=== PATIENT | female | born 1930 | race Asian ===

== ENCOUNTER 2016-11-08 12:38 | Outpatient (CLI) | payer MEDICARE, OTHER | END 2016-11-08 12:39 | disposition home or self-care (01) | DX: I35.8 Other nonrheumatic aortic valve disorders (principal); I51.7 Cardiomegaly ==

== ENCOUNTER 2017-01-27 15:54 | Outpatient (CLI) | payer MEDICARE, OTHER | END 2017-01-27 15:55 | disposition home or self-care (01) | DX: I10 Essential (primary) hypertension (principal); E78.5 Hyperlipidemia, unspecified ==

== ENCOUNTER 2017-03-03 14:55 | Outpatient (CLI) | payer MEDICARE, OTHER | END 2017-03-03 14:56 | disposition home or self-care (01) | DX: R52 Pain, unspecified (principal); M81.0 Age-related osteoporosis without current pathological fracture ==

== ENCOUNTER 2017-04-06 14:07 | Outpatient (CLI) | payer MEDICARE, OTHER ==
[2017-04-06 14:43] LABS: CALCIUM 9.1 mg/dL (8.5-10.3); POTASSIUM 4.2 mmol/L (3.5-5.0)
[2017-04-06] MEDS ORDERED: IOPAMIDOL-300 100 ML VIAL IVP ONE (15:10)
--- NOTE | 2017-04-07 12:21 | CT Report ---
CT CHEST WITH CONTRAST: 04/06/2017 CLINICAL INDICATION: Pulmonary nodule. TECHNIQUE: Axial CT images of the chest were obtained with 100 mL Isovue-300 intravenously. In accordance with CT protocol optimization, one or more of the following dose reduction techniques w ere utilized for this exam: automated exposure control, adjustment of mA and/or KV based on patient size, or use of iterative reconstructive technique. COMPARISON: 10/03/2014, 03/23/2014 FINDINGS: The heart and great vessels demonstrate atherosclerotic calcifications. No hilar or media stinal lymphadenopathy is present. There has been interval increase in the size of the previously no luz pulmonary nodules, with the right lower lobe nodule now measuring 3.2 x 1.5 cm, and the right mid dle lobe nodule now measuring 2.2 x 1.7 cm. Given the interval increase, biopsy would typically be r ecommended. There is trace right pleural effusion present. No pneumothorax. The left lung remains clear. Limited evaluation of upper abdominal structures demonstrates normal adrenal glands. Osseous structures demonstrate degenerative changes. IMPRESSION: INTERVAL INCREASE IN SIZE OF RIGHT MIDDLE AND LOWER LOBE PULMONARY NODULES. CONSIDER BI OPSY. JOB #: [id number] EXT JOB #:[id number]
== END 2017-04-06 14:08 | disposition home or self-care (01) ==
LOC: LAB 14:07
PROVIDERS: ATTEND Physician Assistant Medical
DX: R91.8 Other nonspecific abnormal finding of lung field (principal)
CPT/HCPCS: 36415; 71260; 80048; Q9967

== ENCOUNTER 2017-06-12 10:04 | Emergency (ER) | payer MEDICARE, OTHER ==
[2017-06-12] MEDS ORDERED: MORPHINE 2 MG/ML SYRINGE IVP STA (11:24)
[2017-06-12] MEDS ORDERED: ACETAMINOPHEN 325 MG TABLET PO STA (11:24)
[2017-06-12] MEDS ORDERED: LIDOCAINE VISCOUS 2% 15 ML UDC MM STA (11:25)
[2017-06-12] MEDS ORDERED: MAG HYDROX/AL HYDROX/SIMETH 30 ML UDC PO STA (11:25)
[2017-06-12] MEDS ORDERED: ACETAMINOPHEN 325 MG TABLET PO ONE (11:47)
[2017-06-12] MEDS ORDERED: MORPHINE 2 MG/ML SYRINGE ONE (11:47)
[2017-06-12] MEDS ORDERED: LIDOCAINE VISCOUS 2% 15 ML UDC MM ONE (11:48)
[2017-06-12] MEDS ORDERED: MAG HYDROX/AL HYDROX/SIMETH 30 ML UDC ONE (11:48)
[2017-06-12] MEDS ORDERED: SODIUM CHLORIDE FLUSH 0.9% 10 ML SYRINGE IVP ONE ×2 (11:52→13:55)
[2017-06-12 12:41] LABS: BASOPHILS % (AUTO) 0.2 %; EOSINOPHILS # (AUTO) 0.1 10^3/uL (0.0-0.7); EOSINOPHILS % (AUTO) 1.7 %; HCT - HEMATOCRIT 33.7 % (37.0-47.0); HGB - HEMOGLOBIN 11.5 g/dL (12.0-16.0); LYMPHOCYTES # (AUTO) 0.6 10^3/uL (1.5-3.5); LYMPHOCYTES % (AUTO) 14.6 %; MEAN CORPUSCULAR HEMOGLOBIN 32.2 pg (27.0-31.0); MEAN CORPUSCULAR VOLUME 94.7 fL (81.0-99.0); MONOCYTES # (AUTO) 0.3 10^3/uL (0.0-1.0); MONOCYTES % (AUTO) 6.5 %; NEUTROPHILS # (AUTO) 3.1 10^3/uL (1.5-6.6); RED BLOOD COUNT 3.55 10^6/uL (4.20-5.40)
[2017-06-12 12:50] LABS: H. PYLORI IGG ANTIBODY Negative (Negative); HPYLORI NEG QC Negative (Negative); HPYLORI POS QC POSITIVE (Positive)
[2017-06-12 12:52] LABS: ALBUMIN/GLOBULIN RATIO 1.1 (1.0-2.2); BILIRUBIN,TOTAL 0.8 mg/dL (0.2-1.0); CREATININE 0.9 mg/dL (0.4-1.0); POTASSIUM 4.1 mmol/L (3.5-5.0); TOTAL PROTEIN 6.8 g/dL (6.7-8.2)
--- NOTE | 2017-06-12 13:16 | XRAY Preliminary Report ---
Exam: XR Chest 2 View PA/LAT IMPRESSION: Small right pleural effusion with adjacent airspace disease/atelectasis. [facility] SITE ID: [id number]
--- NOTE | 2017-06-12 13:17 | ED Physician Documentation ---
PD HPI DYSPNEA - Stated complaint Stated Complaint: SOA/BACK PX - Chief complaint Chief Complaint: Resp - History obtained from History obtained from: Patient - History of Present Illness Timing - onset: How many days ago (3-5) Timing - onset during: Light activity Timing - duration: Days (3-5) Timing - details: Gradual onset, Waxing and waning Inciting event(s): URI (some cough with white sputum). No: Immobilization/ travel Improved by: Rest. No: Sitting up Worsened by: Exertion, Coughing. No: Laying flat Associated symptoms: Cough, Chest pain / discomfort (right breast area). No: Hemoptysis, Wheezing, Bilateral edema Similar symptoms before: Has not had sx before Recently seen: Clinic (had had abnormal CXR in recent and had CT scan showing some right lung nodules. Seen by Dr. Solorio, cardiothoracic surgery in [place], who ordered PET scan in [place] (easier for patient to get to) done 2 days ago. Patient has had worse dyspnea, cough and some pains in chest around breast level.) Review of Systems Constitutional: reports: Myalgias. denies: Fever, Chills Nose: reports: Rhinorrhea / runny nose, Congestion Throat: denies: Sore throat Cardiac: reports: Chest pain / pressure. denies: Palpitations, Pedal edema, Calf pain Respiratory: reports: Dyspnea, Cough. denies: Hemoptysis GI: denies: Nausea Neurologic: reports: Generalized weakness. denies: Focal weakness, Numbness, Near syncope, Altered mental status, Headache, Head injury Endocrine: denies: Polydypsia, Weight loss, Weight gain Immunocompromised: denies: Immunocompromised PD PAST MEDICAL HISTORY - Past Medical History Cardiovascular: Hypertension Respiratory: None Neuro: None Endocrine/Autoimmune: None GI: Ulcerative colitis : Frequency HEENT: Chronic vision loss, Chronic hearing loss Psych: Anxiety Musculoskeletal: Osteoarthritis, Chronic back pain Derm: None - Past Surgical History Past Surgical History: Yes HEENT: Cataracts Derm: Other - Present Medications Home Medications: Ambulatory Orders Medication Instructions Recorded Confirmed Atenolol [Tenormin] 25 mg PO DAILY 07/10/13 04/28/14 Albuterol Sulfate [Proair Hfa 2 puffs IH QID #1 hfa.aer.ad 06/12/17 Inhaler] Azithromycin [Zithromax] 250 mg PO DAILY #4 tablet 06/12/17 Dexamethasone [Decadron] 4 mg PO DAILY #5 tablet 06/12/17 guaiFENesin/CODEINE [Robitussin AC] 10 ml PO Q6H PRN #240 ml 06/12/17 - Allergies Allergies/Adverse Reactions: Allergies Allergy/AdvReac Type Severity Reaction Status Date / Time neomycin [Neomycin] Allergy Unknown unknown Verified 06/12/17 10:33 tetracaine Allergy Unknown unknown Verified 06/12/17 10:33 - Social History Does the pt smoke?: No Smoking Status: Never smoker Does the pt drink ETOH?: No Does the pt have substance abuse?: No - Immunizations Immunizations are current?: No PD ED PE NORMAL - Vitals Vital signs reviewed: Yes - General General: Alert and oriented X 3, Well developed/nourished - HEENT HEENT: Ears normal, Moist mucous membranes, Pharynx benign - Neck Neck: Supple, no meningeal sign, No adenopathy - Cardiac Cardiac: RRR, No murmur - Respiratory Respiratory: No: Clear bilaterally (scattered mild wheezes, no coarse sounds. ) - Abdomen Abdomen: Soft, Non tender - Back Back: No CVA TTP - Derm Derm: Normal color, Warm and dry, No rash - Extremities Extremities: Normal ROM s pain, No edema, No calf tenderness / cord - Neuro Neuro: Alert and oriented X 3, No motor deficit, Normal speech Results - Vitals Vitals: Vital Signs - 24 hr 06/12/17 06/12/17 06/12/17 10:10 11:35 12:13 Temperature 37.2 C Heart Rate 101 H 66 63 Respiratory 14 27 H 20 Rate Blood Pressure 169/64 H 161/55 H 139/55 H O2 Saturation 100 98 99 06/12/17 06/12/17 14:00 15:34 Temperature Heart Rate 58 L 77 Respiratory 14 16 Rate Blood Pressure 155/66 H O2 Saturation 99 Oxygen O2 Source Room air - EKG (time done) 10:21 Rate: Rate (enter#) (72) Rhythm: NSR Garrison: Normal Intervals: Normal IN Ischemia: Normal ST segments. No: ST elevation c/w ischemia, ST depression - Labs Labs: Laboratory Tests 06/12/17 06/12/17 06/12/17 12:30 12:30 12:30 WBC 4.0 L RBC 3.55 L Hgb 11.5 L Hct 33.7 L MCV 94.7 MCH 32.2 H MCHC 34.0 RDW 13.0 Plt Count 167 MPV 7.0 L Neut # 3.1 Lymph # 0.6 L Haakon # 0.3 Eos # 0.1 Baso # 0.0 Absolute Nucleated RBC 0.00 Nucleated RBCs 0.0 Sodium 131 L Potassium 4.1 Chloride 95 L Carbon Dioxide 28 Anion Gap 8.0 BUN 17 Creatinine 0.9 Estimated GFR (MDRD) 59 L Glucose 114 H Calcium 9.0 Total Bilirubin 0.8 AST 26 ALT 20 Alkaline Phosphatase 38 L Troponin I < 0.04 Total Protein 6.8 Albumin 3.5 Globulin 3.3 Albumin/Globulin Ratio 1.1 Lipase 45 H. pylori IgG Antibody 06/12/17 12:30 WBC RBC Hgb Hct MCV MCH MCHC RDW Plt Count MPV Neut # Lymph # Haakon # Eos # Baso # Absolute Nucleated RBC Nucleated RBCs Sodium Potassium Chloride Carbon Dioxide Anion Gap BUN Creatinine Estimated GFR (MDRD) Glucose Calcium Total Bilirubin AST ALT Alkaline Phosphatase Troponin I Total Protein Albumin Globulin Albumin/Globulin Ratio Lipase H. pylori IgG Antibody Negative - Rads (name of study) chest Radiology: Prelim report reviewed, EMP read contemporaneously (pneumonic process right lower with right pleural effusion. ) PD MEDICAL DECISION MAKING - ED course Complexity details: reviewed old records (got CT/PET scan results from [place] , showing 2 lung nodules right lung wiht some adenopathy. Small effusion on right. Concerning for slow growing tumor such as AdenoCA. ), considered differential (she does have infiltrative changes right lower lung and some infiltrate compared with smutter of recent chest CT. ), d/w patient Departure - Departure Disposition: 01 Home, Self Care Clinical Impression: Pneumonia Qualifiers: Pneumonia type: due to unspecified organism Laterality: right Lung location: lower lobe of lung Qualified Code(s): J18.1 - Lobar pneumonia, unspecified organism Condition: Stable Record reviewed to determine appropriate education?: Yes Instructions: ED Pneumonia Adult Follow-Up: Rica Talbert PA-C [Primary Care Provider] - Prescriptions: Dexamethasone [Decadron] 4 mg PO DAILY #5 tablet Albuterol Sulfate [Proair Hfa Inhaler] 2 puffs IH QID #1 hfa.aer.ad guaiFENesin/CODEINE [Robitussin AC] 10 ml PO Q6H PRN #240 ml PRN Reason: Cough Azithromycin [Zithromax] 250 mg PO DAILY #4 tablet Comments: Your x-ray appears like some pneumonia on the right side and I think this accounts for your trouble breathing and the pain and cough. Use albuterol inhaler 2 puffs 4 times a day for the next week. Azithromycin daily for 4 more days which is an antibiotic for the infection. Cough medicine if needed. Decadron daily for 4 more days for inflammation. Recheck with her primary care in the next few days, call for an appointment. Follow-up with Dr. Solorio, thoracic surgeon in [place], at her office's direction. Discharge Date/Time: 06/12/17 15:34
--- NOTE | 2017-06-12 13:18 | XRAY Report ---
EXAM: CHEST RADIOGRAPHY EXAM DATE: 06/12/2017 11:58 AM. CLINICAL HISTORY: Chest pain. COMPARISON: 04/06/2017. TECHNIQUE: 2 views. FINDINGS: Lungs/Pleura: The right costophrenic angle is blunted. There is adjacent opacity. No pneumothorax. Mi nimal left basilar atelectasis. Mediastinum: Heart size within normal limits. Unfolded aorta. Atherosclerotic calcification in the ao rtic arch. Other: None. IMPRESSION: Small right pleural effusion with adjacent airspace disease/atelectasis. [facility] Referring Provider Line: [phone] SITE ID: [id number]
[2017-06-12] MEDS ORDERED: DEXAMETHASONE 10 MG/ML VIAL IVP STA (13:42)
[2017-06-12] MEDS ORDERED: cefTRIAXone 1 GM in SODIUM CHLORIDE 0.9% MINIBAG 100 ML IV STA (13:42)
[2017-06-12] MEDS ORDERED: AZITHROMYCIN 250 MG TABLET PO STA (13:42)
[2017-06-12] MEDS ORDERED: ALBUTEROL NEB 2.5 MG/3 ML INH STA (13:42)
[2017-06-12] MEDS ORDERED: AZITHROMYCIN 250 MG TABLET PO ONE (13:54)
[2017-06-12] MEDS ORDERED: DEXAMETHASONE 10 MG/ML VIAL ONE (13:55)
[2017-06-12] MEDS ORDERED: cefTRIAXone 1 GM VIAL ONE (13:55)
[2017-06-12] MEDS ORDERED: ALBUTEROL NEB 2.5 MG/3 ML INH ONE (13:56)
[2017-06-12] MEDS ORDERED: ONDANSETRON 4 MG/2 ML VIAL IM STA (14:56)
[2017-06-12] MEDS ORDERED: ONDANSETRON 4 MG/2 ML VIAL ONE (15:04)
[2017-06-12 15:36] VITALS: BP 155/66
== END 2017-06-12 15:34 | disposition home or self-care (01) ==
LOC: ED 10:04
DX: J18.9 Pneumonia, unspecified organism (principal); I10 Essential (primary) hypertension
CPT/HCPCS: 36415; 71020; 80053; 83690; 84484; 85025; 87339; 93005; 96365; 96372; 96375; 99284; A9270; J7613

== ENCOUNTER 2017-10-05 12:16 | Outpatient (CLI) | payer MEDICARE, OTHER ==
--- NOTE | 2017-10-05 12:46 | XRAY Report ---
CHEST, TWO VIEWS: 10/05/2017 HISTORY: Lung cancer. COMPARISON: 06/21/2017 FINDINGS: Compared to the prior study, there has been significant worsening with a large right pleur al effusion occupying most of the right hemithorax. The left lung is grossly clear. No left pleural effusion. No pneumothorax on either side. Heart size difficult to assess. Multilevel degenerative change in the spine. IMPRESSION: LARGE RIGHT PLEURAL EFFUSION OCCUPYING MUCH OF THE RIGHT HEMITHORAX, INTERVAL WORSENING SINCE 06/21/2017. JOB #: [id number] EXT JOB #:[id number]
[2017-10-05 13:12] LABS: INR 1.1 (0.8-1.2); PT - PROTHROMBIN TIME 11.9 secs (9.9-12.6)
[2017-10-05 13:20] LABS: PARTIAL THROMBOPLASTIN TIME 29.1 secs (24.9-33.3)
== END 2017-10-05 12:17 | disposition home or self-care (01) ==
LOC: DI 12:16
PROVIDERS: ATTEND Physician Assistant Medical
DX: C34.91 Malignant neoplasm of unspecified part of right bronchus or lung (principal); J90 Pleural effusion, not elsewhere classified
CPT/HCPCS: 36415; 71020; 85610; 85730

== ENCOUNTER 2017-10-05 12:20 | Outpatient (CLI) | payer MEDICARE, OTHER ==
[2017-10-05 15:57] LABS: BF CLARITY BLOODY; BF COLOR BLOODY; CC,BF RBC 88519 /mm^3
[2017-10-05 16:38] LABS: LYMPHOCYTES %,BODY FLUID 96; MACROPHAGES %,BODY FLUID 3 %; NEUTROPHILS %, BF 1 %
[2017-10-05] MEDS ORDERED: BUFFERED LIDOCAINE 10 ML SYRINGE IU ONE (17:15)
--- NOTE | 2017-10-05 20:08 | XRAY Preliminary Report ---
Exam: XR XR 2V INSP/EXP POST THORAC IMPRESSION: Status post right thoracentesis. The large right pleural effusion has decreased to a smal l to moderate amount. New right pneumothorax with a superior width of 3.9 cm on the expiration view. Partially collapsed right lung. See the two follow-up chest x-rays and reports that have already been performed and read. [facility] SITE ID: [id number]
--- NOTE | 2017-10-05 20:11 | XRAY Report ---
EXAM: CHEST RADIOGRAPHY EXAM DATE: 10/05/2017 03:24 PM. CLINICAL HISTORY: F/U THORACENTESIS, RT LUNG ADENOCA. COMPARISON: Chest 10/05/2017. TECHNIQUE: 1 view. FINDINGS: This exam was placed on my list to be read at 7:47 PM on 10/05/2017. Lungs/Pleura: Status post right thoracentesis. The large right pleural effusion has decreased to a sm all to moderate amount. New right pneumothorax with a superior width of 3.9 cm on the expiration view . Partially collapsed right lung. Mediastinum: Normal heart size. IMPRESSION: Status post right thoracentesis. The large right pleural effusion has decreased to a smal l to moderate amount. New right pneumothorax with a superior width of 3.9 cm on the expiration view. Partially collapsed right lung. See the two follow-up chest x-rays and reports that have already been performed and read. [facility] Referring Provider Line: [phone] SITE ID: [id number]
--- NOTE | 2017-10-06 11:37 | Ultrasound Report ---
ULTRASOUND-GUIDED THORACENTESIS: 10/05/2017 HISTORY: Adenocarcinoma right lung. Informed consent is obtained from the patient. With ultrasound guidance, the fluid in the right ches t was marked. With sterile technique, 1% lidocaine is injected into the skin and subcutaneous soft t issues of the right chest. A Gnxz-E-Kaeizwny catheter was then inserted; 50 mL of bloody, dark red f luid was sent to the lab for evaluation; 1200 mL of dark red fluid was aspirated in a vacuum containe r. A post-procedure chest x-ray shows a moderate size right pneumothorax. The patient tolerated the procedure well. IMPRESSION: SUCCESSFUL RIGHT THORACENTESIS WITH THE REMOVAL OF 1250 ML OF DARK RED FLUID COMPLICATED BY A MODERATE SIZE PNEUMOTHORAX. The attending clinician, Rica Talbert PA-C, was notified and the patient was directed to the [facility] room. JOB #: [id number] EXT JOB #:[id number]
[2017-10-06 21:26] VITALS: BP 153/85
[2017-10-07 16:31] LABS: TEST RESULT REPORT
== END 2017-10-05 12:21 | disposition home or self-care (01) ==
LOC: DI 12:20
PROVIDERS: ATTEND Physician Assistant Medical
DX: C34.91 Malignant neoplasm of unspecified part of right bronchus or lung (principal); J90 Pleural effusion, not elsewhere classified; J95.811 Postprocedural pneumothorax
CPT/HCPCS: 32555; 71020; 81599; 87070; 87205; 89051

== ENCOUNTER 2017-10-05 15:45 | Inpatient (IN) | payer MEDICARE, OTHER ==
[2017-10-05] MEDS ORDERED: LIDOCAINE 2% 10 ML MDV SUBQ STA (16:13)
[2017-10-05] MEDS ORDERED: LIDOCAINE 2%-EPI 1:100000 20 ML MDV ONE (16:24)
[2017-10-05] MEDS ORDERED: LIDOCAINE 2% 10 ML MDV ONE ×2 (16:24→16:26)
--- NOTE | 2017-10-05 17:07 | XRAY Preliminary Report ---
Exam: XR CHEST 2 VIEW PA/LAT IMPRESSION: 1. Moderate right hydropneumothorax is unchanged since earlier today at 1514. This may reflect a nonc ompliant right lung. [facility] SITE ID: [id number]
--- NOTE | 2017-10-05 17:10 | XRAY Report ---
EXAM: CHEST RADIOGRAPHY EXAM DATE: 10/05/2017 04:37 PM. CLINICAL HISTORY: Right sided PTX. Recent thoracentesis. COMPARISON: 10/05/2017 at 1514. TECHNIQUE: 2 views. FINDINGS: Lungs/Pleura: There is a moderate sized right-sided hydropneumothorax. The right middle and lower lob e have a rounded shape but do not expand to fill the pleural space. There is apical pleural separatio n of 22 mm area Mediastinum: The heart size is normal. There is mild aortic tortuosity and mild/moderate atherosclero sis. Other: None. IMPRESSION: 1. Moderate right hydropneumothorax is unchanged since earlier today at 1514. This may reflect a nonc ompliant right lung. [facility] Referring Provider Line: [phone] SITE ID: [id number]
[2017-10-05] MEDS ORDERED: ONDANSETRON 4 MG/2 ML VIAL IVP STA (17:38)
[2017-10-05] MEDS ORDERED: MORPHINE 10 MG/ML VIAL IVP STA (17:38)
--- NOTE | 2017-10-05 17:43 | ED Physician Documentation ---
History of Present Illness - Stated complaint Stated Complaint: POST OP COMPLICATION - Chief complaint Chief Complaint: Resp - History obtained from History obtained from: Patient (pt sent over from radiology after she was having a right sided thoracentesis and now has a pneumothorax.) Review of Systems Constitutional: denies: Fever, Chills Cardiac: reports: Chest pain / pressure. denies: Palpitations Respiratory: reports: Dyspnea. denies: Cough, Hemoptysis, Wheezing GI: denies: Abdominal Pain, Nausea, Vomiting : denies: Dysuria, Frequency Skin: denies: Rash, Lesions Musculoskeletal: denies: Back pain Neurologic: denies: Headache, Head injury PD PAST MEDICAL HISTORY - Past Medical History Cardiovascular: Hypertension Respiratory: Shortness of breath Neuro: None Endocrine/Autoimmune: None GI: GERD : Frequency HEENT: Chronic vision loss, Chronic hearing loss Psych: Anxiety Musculoskeletal: Osteoarthritis, Chronic back pain Derm: None - Past Surgical History Past Surgical History: Yes HEENT: Cataracts Derm: Other - Present Medications Home Medications: Ambulatory Orders Medication Instructions Recorded Confirmed Atenolol [Tenormin] 25 mg PO DAILY 07/10/13 10/05/17 Dexamethasone [Decadron] 4 mg PO DAILY #5 tablet 06/12/17 10/05/17 Gabapentin [Gralise] 1 tab PO DAILY 09/28/17 10/05/17 Ubidecarenone [Co Q-10] 1 cap PO DAILY 09/28/17 10/05/17 oxyCODONE [Roxicodone] 5 mg PO Q4-6H PRN 09/28/17 10/05/17 - Allergies Allergies/Adverse Reactions: Allergies Allergy/AdvReac Type Severity Reaction Status Date / Time neomycin [Neomycin] Allergy Unknown unknown Verified 06/12/17 10:33 tetracaine Allergy Unknown unknown Verified 06/12/17 10:33 - Social History Does the pt smoke?: No Smoking Status: Never smoker Does the pt drink ETOH?: No Does the pt have substance abuse?: No - Immunizations Immunizations are current?: No PD ED PE NORMAL - Vitals Vital signs reviewed: Yes - General General: Alert and oriented X 3, Well developed/nourished - Cardiac Cardiac: RRR, No murmur - Respiratory Respiratory: No respiratory distress. No: Clear bilaterally (decreased breath sounds on the right. ) - Abdomen Abdomen: Normal bowel sounds. No: Non tender, Non distended - Back Back: No CVA TTP - Derm Derm: Normal color, No rash - Neuro Neuro: Alert and oriented X 3 - Psych Psych: Normal mood, Normal affect Results - Vitals Vitals: Vital Signs - 24 hr 10/05/17 10/05/17 15:52 16:47 Temperature 36.8 C Heart Rate 76 96 Respiratory 20 18 Rate Blood Pressure 152/84 H 172/82 H O2 Saturation 99 99 Oxygen O2 Source Room air - Rads (name of study) CXR Radiology: Final report received Chest X- ray Radiology: EMP read indepedently Procedures - Chest Tube (location) right other other Chest tube preparation: Consent obtained Chest tube location: Right, Other (2nd intercostal space anterior thoravent) Chest tube anesthesia: Lidocaine Chest tube return: Air Chest tube after care: Other PD MEDICAL DECISION MAKING - ED course Complexity details: d/w patient ED course: pt is stable. decreased right sided breath sounds with PTX on the CXR. thoravent placed w/o problems. Will admit discussed with Dr tsai (general surgery) who will admit. Departure - Departure Disposition: 66 [facility] DC/Xfer Clinical Impression: Pneumothorax on right, Hypertension, Lung cancer Condition: Good
[2017-10-05] MEDS ORDERED: MORPHINE 2 MG/ML SYRINGE ONE (17:45)
[2017-10-05] MEDS ORDERED: ONDANSETRON 4 MG/2 ML VIAL ONE (17:45)
[2017-10-05] MEDS ORDERED: SODIUM CHLORIDE FLUSH 0.9% 10 ML SYRINGE IVP PRN (18:02)
--- NOTE | 2017-10-05 18:07 | XRAY Preliminary Report ---
Exam: XR CHEST 1 VIEW IMPRESSION: Decreasing caliber of the moderate right hydropneumothorax. [facility] SITE ID: [id number]
--- NOTE | 2017-10-05 18:27 | XRAY Report ---
EXAM: CHEST RADIOGRAPHY EXAM DATE: 10/05/2017 05:48 PM. CLINICAL HISTORY: Post right-sided tube placement. Follow-up post thoracentesis right pneumothorax . COMPARISON: Earlier today at 1613, 1514, 1226. TECHNIQUE: 1 view. FINDINGS: Lungs/Pleura: Interval placement of a small-caliber chest tube superior right pleural space. Overall caliber of the apical component of the moderate right hydropneumothorax is minimally decrease d, now 1.9 cm versus 2.1 cm. Decreasing amount of air lateral and basilar pleural space, with fluid i n these regions now. Left lung remains clear. Stable patchy airspace densities right lower lobe. Left lung remains clear. Mediastinum: Heart is normal caliber. Stable mild ipup-ab-irdlo mediastinal shift. Other: None. IMPRESSION: Decreasing caliber of the moderate right hydropneumothorax. [facility] Referring Provider Line: [phone] SITE ID: [id number]
[2017-10-05] MEDS: oxyCODONE 5 MG TABLET PO PRN (20:15)
--- NOTE | 2017-10-05 21:08 | CONSULTATION NOTE ---
Referring Provider Name of Referring Provider:: Dr. Clay from Surgery Consult Date: 10/05/17 (for medical management ) Chief Complaint - Chief Complaint Chief Complaint: SOB s/p thoracentesis and with a right sided pneumothorax History of Present Illness - Admitted From Admitted From:: Radiology - History Obtained From Records Reviewed: Patient and family - History of Present Illness HPI Comment/Other: This is a pleasant 87 y/o femal with hx of HTN, CATA/GERD/OA, chronic hearing and vision loss, and bilateral extremity edema p/w from radiology department after having a thoracentesis with a subsequent right sided hydro-pneumothorax with associated tachypnea, afebrile and with some pleuritc chest pain s/p chest tube insertion on right side. Serial CXR's have shown evidence of re-expansion and improved to right sided pneumothorax. Hospitalist service consulted to manage medically. History - Past Medical History Cardiovascular: reports: Hypertension Respiratory: reports: Shortness of breath Neuro: reports: None Endocrine/Autoimmune: reports: None. denies: HyPOthyroidism, Systemic lupus erythematosus GI: reports: GERD : reports: Frequency HEENT: reports: Chronic vision loss, Chronic hearing loss Psych: reports: Anxiety. denies: Depression Musculoskeletal: reports: None, Osteoarthritis, Chronic back pain Derm: reports: None MRSA Hx?: No - Past Surgical History Cardiovascular: denies: CABG, Coronary stent, Valve replacement, AICD, AAA HEENT: reports: Cataracts Derm: reports: Other - Family & Social History Living arrangement: At home Living Situation: With family - Substance History Use: Uses substance without health or social issues: NONE Use Issues: Anxiety Disorder - POLST Patient has POLST: No POLST Status: Full Code Meds/Allgy - Home Medications Home Medications: Ambulatory Orders Medication Instructions Recorded Confirmed Atenolol [Tenormin] 25 mg PO DAILY 07/10/13 10/05/17 Aspirin [Aspirin EC] 81 mg PO DAILY 10/05/17 10/05/17 Gabapentin 100 mg PO BID 10/05/17 10/05/17 Triamterene/Hydrochlorothiazid 1 tab PO DAILY 10/05/17 10/05/17 [Triamterene-Hctz 37.5-25 mg Tb] raNITIdine [Zantac] 150 mg PO DAILY 10/05/17 10/05/17 - Allergies Allergies/Adverse Reactions: Allergies Allergy/AdvReac Type Severity Reaction Status Date / Time neomycin [Neomycin] Allergy Unknown unknown Verified 06/12/17 10:33 tetracaine Allergy Unknown unknown Verified 06/12/17 10:33 Review of Systems - Constitutional Constitutional: reports: Poor appetite. denies: Fatigue, Fever, Chills, Weakness - Eyes Eyes: denies: Blurred vision - Ears, Nose & Throat Ears, Nose & Throat: denies: Vertigo - Cardiovascular Cariovascular: reports: Edema. denies: Irregular heart rate, Palpitations, Chest pain, Syncope, Exertional dyspnea, Orthopnea - Respiratory Respiratory: reports: Pleuritic pain. denies: Cough, Wheezing - Gastrointestinal Gastrointestinal: denies: Abdominal pain, Constipation, Change in bowel habits - Genitourinary Genitourinary: denies: Dysuria - Musculoskeletal Musculoskeletal: denies: Muscle pain, Muscle weakness - Integumentary Integumentary: denies: Rash - Neurological Neurological: denies: General weakness, Dizziness, Numbness - Psychiatric Psychiatric: reports: Anxiety. denies: Depression - Endocrine Endocrine: denies: Polyuria, Polydypsia - Hematologic/Lymphatic Hematologic/Lymphatic: denies: Anemia, Blood clots - All Other Systems All Other Systems: reports: Reviewed and negative Exam - Vital Signs Vital Signs: Vital Signs x48h Temp Pulse Pulse Resp BP BP Pulse Ox 10/05/17 20:58 36.6 C 101 H 16 154/81 H 95 10/05/17 19:03 97 23 135/77 H 100 - Physical Exam General Appearance: positive: No acute distress, Anxious Eyes Bilateral: positive: Normal inspection, PERRL, EOMI ENT: positive: ENT inspection nml, Pharynx nml, No signs of dehydration Neck: positive: Nml inspection, Thyroid nml, No JVD, Trachea midline. negative : Thyromegaly Respiratory: positive: Chest non-tender, No respiratory distress, Breath sounds nml Cardiovascular: positive: Regular rate & rhythm, No murmur, No gallop Peripheral Pulses: positive: 2+ Abdomen: positive: Non-tender, No organomegaly, Nml bowel sounds, No distention. negative: Tenderness, Hepatomegaly, Splenomegaly Skin: negative: No rash Extremities: positive: Full ROM, Nml appearance, Pedal edema. negative: Calf tenderness Neurologic/Psychiatric: positive: Oriented x3 Conclusion/Plan - Diagnosis Diagnosis: 1. Acute right sided pneumothorax secondary to thoracentesis for pleural effusion. 2. SOB sec to #1. 3. Hx lung ca with pleural effusion s/p thoracentesis. 4. GERD. 5. HTN. 6. Bilateral leg edema. 7. Anxiety disorder. - Plan Plan: Would continue to monitor patient's progressive improvement s/p chest tube insertion with serosanguinous appearance to chest tube plcmt today. Oxygen supplementation. Labs to follow. BP control. Would send pleural fluid for gram stain and culture as well as chemistries and cytology due her hx of lung cancer. Would panculture if temp>100.4, pain control, incentive mariela, nebs prn , reconcile home meds and resume. Dr Clay has been consulted on case. DVT/ GI. Total consult time: 75 min Billing; C-4 - Diagnostic Imaging Results Diagnostic Imaging Results: positive: Final report reviewed - EKG Results EKG Interpreted Independently: Yes
[2017-10-05] MEDS: ATENOLOL 25 MG TABLET PO SCH (22:51)
[2017-10-05] MEDS: SODIUM CHLORIDE FLUSH 0.9% 10 ML SYRINGE IVP SCH (22:51)
[2017-10-06] MEDS: ACETAMINOPHEN 325 MG TABLET PO PRN ×3 (00:47→14:53)
[2017-10-06 01:55] LABS: CC,BF RBC 151137 /mm^3
[2017-10-06 02:48] LABS: MONOCYTES %,BODY FLUID 5 %
[2017-10-06 02:49] LABS: BF COLOR PINK; BF SOURCE PLEURAL
[2017-10-06 03:34] LABS: EOSINOPHILS %,BODY FLUID 2 %; LYMPHOCYTES %,BODY FLUID 83
[2017-10-06 06:00] LABS: BASOPHILS % (AUTO) 0.2 %; EOSINOPHILS # (AUTO) 0.1 10^3/uL (0.0-0.7); EOSINOPHILS % (AUTO) 2.4 %; HGB - HEMOGLOBIN 11.7 g/dL (12.0-16.0); LYMPHOCYTES # (AUTO) 0.5 10^3/uL (1.5-3.5); LYMPHOCYTES % (AUTO) 12.7 %; MEAN CORPUSCULAR HEMOGLOBIN 31.8 pg (27.0-31.0); MEAN CORPUSCULAR HGB CONC 33.3 g/dL (32.0-36.0); MEAN CORPUSCULAR VOLUME 95.5 fL (81.0-99.0); MONOCYTES # (AUTO) 0.3 10^3/uL (0.0-1.0); MONOCYTES % (AUTO) 6.8 %; NEUTROPHILS # (AUTO) 3.1 10^3/uL (1.5-6.6); NEUTROPHILS % (AUTO) 77.9 %; PLT - PLATELET COUNT 158 10^3/uL (130-450); RED BLOOD COUNT 3.69 10^6/uL (4.20-5.40); RED CELL DISTRIBUTION WIDTH 13.2 % (12.0-15.0); WHITE BLOOD COUNT 3.9 x10^3/uL (4.8-10.8)
[2017-10-06] MEDS: SODIUM CHLORIDE FLUSH 0.9% 10 ML SYRINGE IVP SCH ×3 (06:58→20:57)
--- NOTE | 2017-10-06 07:00 | XRAY Preliminary Report ---
Exam: XR CHEST 1 VIEW IMPRESSION: 1. Stable right apical pneumothorax measuring 2.8 cm. Right-sided chest tube again seen. 2. Right basilar consolidation and medium size right-sided pleural effusion appear similar to the martha or study. 3. Development of diffuse interstitial and airspace abnormality within the right upper lobe. New smal l left basilar atelectasis. [facility] SITE ID: [id number]
--- NOTE | 2017-10-06 07:03 | XRAY Report ---
EXAM: CHEST RADIOGRAPHY EXAM DATE: 10/06/2017 06:12 AM. CLINICAL HISTORY: Pneumothorax, chest tube, follow-up COMPARISON: 10/05/2017,. TECHNIQUE: 1 view. FINDINGS: Lungs/Pleura: There is a medium-sized right-sided apical pneumothorax, measuring 2.8 cm, stable from the prior examination. There is a right upper chest tube, similar to the prior exam. Moderate right-s ided interstitial and air space disease is present, with progression within the right upper lobe. Med ium-sized right-sided pleural effusion is stable. There is a trace left-sided pleural effusion. Small left basilar a cyst. Mediastinum: Mild enlargement of the cardiac silhouette. Moderate calcific aortic atherosclerosis. So ft tissue gas about the right hemithorax related to the chest tube. Other: None. IMPRESSION: 1. Stable right apical pneumothorax measuring 2.8 cm. Right-sided chest tube again seen. 2. Right basilar consolidation and medium size right-sided pleural effusion appear similar to the martha or study. 3. Development of diffuse interstitial and airspace abnormality within the right upper lobe. New smal l left basilar atelectasis. [facility] Referring Provider Line: [phone] SITE ID: [id number]
[2017-10-06] MEDS: oxyCODONE 5 MG TABLET PO PRN ×3 (08:15→20:57)
[2017-10-06] MEDS: TRIAMT/HCTZ 37.5 MG/25 MG CAPSULE PO SCH (08:16)
[2017-10-06] MEDS: GABAPENTIN 100 MG CAPSULE PO SCH ×2 (08:16→20:57)
[2017-10-06] MEDS: ASPIRIN EC 81 MG TABLET PO SCH (08:16)
[2017-10-06] MEDS: ATENOLOL 25 MG TABLET PO SCH (08:16)
[2017-10-06] MEDS ORDERED: GABAPENTIN PO SCH (09:00)
[2017-10-06] MEDS ORDERED: ATENOLOL 25 MG TABLET PO SCH (09:00)
[2017-10-06] MEDS ORDERED: DEXAMETHASONE 4 MG TABLET PO SCH (09:00)
--- NOTE | 2017-10-06 10:38 | HISTORY & PHYSICAL EXAMINATION ---
DATE OF ADMISSION: 10/05/2017 REASON FOR ADMISSION: Iatrogenic pneumothorax. HISTORY OF PRESENT ILLNESS: This is an 87-year-old female who was recently diagnosed with a right-sided lung cancer. 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 She has not completed her staging workup. She has been seen by hematologic oncology, but I am unsure what her plan for treatment is. She developed worsening shortness of breath yesterday and a pleurocentesis was performed and fluid drained. Subsequently, an x-ray was performed, which demonstrated improvement in her hydrothorax, however, a pneumothorax was noted. She was therefore sent to the emergency department. On evaluation in the emergency department, an anterior placed chest catheter was inserted. She did develop slight improvement of her pneumothorax and was transferred to the floor. A repeat chest x-ray this morning again demonstrates persistent apical pneumothorax and worsening hydrothorax. She has remained hemodynamically stable overnight. She states that her breathing is improved and her oxygen saturations have remained 100% on a 50% face mask. PAST MEDICAL HISTORY: High blood pressure, gastrointestinal reflux disease, osteoarthritis, right-sided lung cancer. PAST SURGICAL HISTORY: None. FAMILY HISTORY: The patient lives independently at home. She states that she does not have any family around her. HOME MEDICATIONS 1. Atenolol 25 mg p.o. daily. 2. Aspirin 81 mg p.o. daily. 3. Gabapentin 100 mg p.o. twice daily. 4. Triamterene/hydrochlorothiazide 1 tab p.o. daily. 5. Ranitidine 150 mg p.o. daily. ALLERGIES TO MEDICATIONS 1. NEOMYCIN. 2. TETRACAINE. PHYSICAL EXAMINATION: VITAL SIGNS: Blood pressure is 142/56, heart rate 77, respiratory rate 22, O2 sat is 100% on 50% facemask, temperature is 36.8. GENERAL: The patient is awake, alert, oriented x3, in no acute distress. She does complain of right-sided pleuritic chest pain. CARDIOVASCULAR: Regular rate and rhythm. CHEST: She has markedly diminished breath sounds on the right. The left is clear to auscultation. A right anteriorly placed chest tube is in place, connected to the Pleur-Evac at 20 mm of water suction. ABDOMEN: Soft and nondistended. EXTREMITIES: Well perfused with +1 pitting edema bilaterally. LABORATORY VALUES: White count is 3.9, hemoglobin 11.7, hematocrit 35.2, platelets 158. ASSESSMENT: This is an 87-year-old female with an iatrogenic right pneumothorax status post pleurocentesis. PLAN: The patient does not have adequate improvement of her pneumothorax after the anteriorly placed chest catheter. A formal chest tube will be required. This will be performed under monitored anesthesia care in the PACU. The procedure was explained to the patient in detail including the potential risks of bleeding and infection. She understands and agrees to proceed. The anteriorly place chest catheter will be removed following placement of the chest tube. Expected length of stay is 24-48 hours. JOB #: [id number] EXT JOB #:[id number]
--- NOTE | 2017-10-06 10:57 | PROVIDER PROGRESS NOTE ---
Subjective - Prog Note Date Prog Note Date: 10/06/17 Prog Note Time: 10:55 - Subjective Pt reports feeling: No change, Worse Subjective: Gin complains of uncontrolled pain shortly after returning from chest tube revision. She denies headaches, fever, chills, a new cough or hempotysis. Current Medications - Current Medications Current Medications: Active Medications Acetaminophen (Tylenol) 650 mg PO Q4HR PRN PRN Reason: Pain 1 to 4 Last Admin: 10/06/17 14:53 Dose: 650 mg Alprazolam (Xanax) 0.25 mg PO Q4HR PRN PRN Reason: Agitation Last Admin: 10/06/17 16:23 Dose: 0.25 mg Amlodipine Besylate (Norvasc) 5 mg PO DAILY [facility] Last Admin: 10/06/17 20:57 Dose: 5 mg Aspirin (Ecotrin) 81 mg PO DAILY [facility] Last Admin: 10/06/17 08:16 Dose: 81 mg Atenolol (Tenormin) 25 mg PO DAILY [facility] Last Admin: 10/06/17 08:16 Dose: 25 mg Fentanyl (Duragesic) 1 patch TOP Q3D [facility] Last Admin: 10/06/17 16:23 Dose: 1 patch Gabapentin (Neurontin) 100 mg PO BID [facility] Last Admin: 10/06/17 20:57 Dose: 100 mg Morphine Sulfate (Morphine) 2 mg IVP Q4H PRN PRN Reason: PAIN Last Admin: 10/06/17 16:23 Dose: 2 mg Ondansetron HCl (Zofran Odt) 4 mg TL Q4HR PRN PRN Reason: Nausea / Vomiting Oxycodone HCl (Roxicodone) 5 mg PO Q4HR PRN PRN Reason: Pain 5 to 7 Last Admin: 10/06/17 20:57 Dose: 5 mg Patient Own Medication (Patient Own Medication) 1 each PO DAILY [facility] Last Admin: 10/06/17 12:40 Dose: Not Given Polyethylene Glycol (Miralax) 17 gm PO DAILY [facility] Ranitidine HCl (Zantac) 150 mg PO DAILY [facility] Last Admin: 10/06/17 08:16 Dose: 150 mg Senna (Senokot) 8.6 mg PO DAILY [facility] Last Admin: 10/06/17 16:23 Dose: 8.6 mg Sodium Chloride (Normal Saline Flush 0.9%) 10 ml IVP Q8HR [facility] Last Admin: 10/06/17 20:57 Dose: 10 ml Sodium Chloride (Normal Saline Flush 0.9%) 10 ml IVP PRN PRN PRN Reason: NEEDED PER PROVIDER ORDERS Triamterene/HCTZ (Dyazide) 1 cap PO DAILY [facility] Last Admin: 10/06/17 08:16 Dose: 1 cap Atenolol [Tenormin] 25 mg PO DAILY 07/10/13 Aspirin [Aspirin EC] 81 mg PO DAILY 10/05/17 Gabapentin 100 mg PO BID 10/05/17 Triamterene/Hydrochlorothiazid [Triamterene-Hctz 37.5-25 mg Tb] 1 tab PO DAILY 10/05/17 raNITIdine [Zantac] 150 mg PO DAILY 10/05/17 oxyCODONE [Roxicodone] 5 mg PO Q4H PRN 10/06/17 Objective - Vital Signs/Intake & Output Reviewed Vital Signs: Yes Vital Signs: Vital Signs x48h Temp Pulse Resp BP Pulse Ox 10/06/17 08:01 36.5 C 67 16 153/56 H 100 10/06/17 06:50 58 L 18 100 10/06/17 05:26 36.8 C 77 22 142/56 H 100 10/06/17 04:00 58 L 17 100 10/06/17 03:00 60 16 100 Intake & Output: Intake & Output 10/03/17 10/04/17 10/05/17 10/06/17 23:59 23:59 23:59 23:59 Intake Total 550 270 Output Total 440 492 Balance 110 -222 - Objective General Appearance: positive: Alert, Moderate distress, Anxious Eyes Bilateral: positive: Normal inspection ENT: positive: ENT inspection nml, Pharynx nml, Dry mucous membranes Neck: positive: Nml inspection, Thyroid nml, No JVD, Stiff neck Respiratory: positive: Rhonchi, Other (absent lung sounds lower right-mid right lobe.) Cardiovascular: positive: Regular rate & rhythm, No gallop Peripheral Pulses: 2+ Radial (R), 2+ Radial (L) Abdomen: positive: Non-tender, No organomegaly, Nml bowel sounds, No distention Back: positive: CVA tenderness (R) Skin: positive: Color nml, No rash, Warm, Dry Extremities: positive: Non-tender, Full ROM, Pedal edema Neurologic/Psychiatric: positive: Disoriented to time, Weakness, Sensory loss, Depressed mood/affect Reflexes: Bicep (R): 2+, Bicep (L): 2+ - Lab Results Fish Bones: 10/06/17 05:38 10/07/17 05:54 Other Labs: Lab Results x24hrs 10/06/17 10/06/17 10/06/17 Range/Units 05:38 05:38 01:21 WBC 3.9 L (4.8-10.8) x10^3/uL RBC 3.69 L (4.20-5.40) 10^6/uL Hgb 11.7 L (12.0-16.0) g/dL Hct 35.2 L (37.0-47.0) % MCV 95.5 (81.0-99.0) fL MCH 31.8 H (27.0-31.0) pg MCHC 33.3 (32.0-36.0) g/dL RDW 13.2 (12.0-15.0) % Plt Count 158 (130-450) 10^3/uL MPV 7.0 L (7.9-10.8) fL Neut # 3.1 (1.5-6.6) 10^3/uL Lymph # 0.5 L (1.5-3.5) 10^3/uL Bureau # 0.3 (0.0-1.0) 10^3/uL Eos # 0.1 (0.0-0.7) 10^3/uL Baso # 0.0 (0.0-0.1) 10^3/uL Absolute Nucleated RBC 0.00 x10^3/uL Nucleated RBC % 0.0 /100WBC Lactic Acid (0.5-2.2) mmol/L Magnesium 1.6 L (1.7-2.8) mg/dL Fluid Source PLEURAL Fluid Color PINK Fluid Clarity HAZY Fluid WBC 4323 /mm^3 Fluid RBC 011216 /mm^3 Fluid Neutrophils % 10 % Fluid Lymphocytes % 83 Fluid Monocytes % 5 % Fluid Eosinophils % 2 % 10/05/17 Range/Units 21:37 WBC (4.8-10.8) x10^3/uL RBC (4.20-5.40) 10^6/uL Hgb (12.0-16.0) g/dL Hct (37.0-47.0) % MCV (81.0-99.0) fL MCH (27.0-31.0) pg MCHC (32.0-36.0) g/dL RDW (12.0-15.0) % Plt Count (130-450) 10^3/uL MPV (7.9-10.8) fL Neut # (1.5-6.6) 10^3/uL Lymph # (1.5-3.5) 10^3/uL Bureau # (0.0-1.0) 10^3/uL Eos # (0.0-0.7) 10^3/uL Baso # (0.0-0.1) 10^3/uL Absolute Nucleated RBC x10^3/uL Nucleated RBC % /100WBC Lactic Acid 1.1 (0.5-2.2) mmol/L Magnesium (1.7-2.8) mg/dL Fluid Source Fluid Color Fluid Clarity Fluid WBC /mm^3 Fluid RBC /mm^3 Fluid Neutrophils % % Fluid Lymphocytes % Fluid Monocytes % % Fluid Eosinophils % % - Diagnostic Imaging Diagnostic Imaging Results: positive: Prelim report reviewed Assessment/Plan - Problem List (1) Hypertension Impression: Blood pressure was noted to be elevated at 175/65. Although this may be from pain. Patient takes Dyazide, atenolol at home. Plan: Continue to monitor vital signs. Norvasc was added at 5mg PO daily. (2) Lung cancer Impression: Patient sees the [facility]. Plan: Continued care. (3) Pneumothorax on right Impression: Earlier in the day of admission, patient underwent a pleurocentesis with pleural fluid drained for worsening SOB. A post procedure x-ray showed a pneumothorax, so an anterior chest tube was inserted and remains to continuous wall suction. Plan: A revision of current chest tube is planned for today. This was successfully completed and now patient has a chest tube in right lateral chest wall that is draining well. (4) GERD (gastroesophageal reflux disease) Impression: Patient has a history of this. Plan: Continue home treatment. (5) CATA (generalized anxiety disorder) Impression: This seems to be exacerbated with the acute situation. No home medications are listed. Plan: We will continue to manage pain. (6) SOB (shortness of breath) Impression: This is likely a consequence of her ongoing lung cancer and not exacerbated by her newly placed chest tube. Chest x-ray ordered as per chest tube protocol. Plan: Continue supplemental oxygen, continuous pulse ox and pain control.
[2017-10-06] MEDS ORDERED: ceFAZolin 2 GM/50 ML 2 GM/50 ML BAG IV SCH (11:45)
[2017-10-06] MEDS ORDERED: SODIUM CHLORIDE 0.9% 0 ML IV ONE (12:19)
[2017-10-06] MEDS: PATIENT OWN MED PO SCH (12:40)
[2017-10-06] MEDS ORDERED: LIDOCAINE 1%-EPI 1:100000 20 ML MDV SUBQ ONE ×2 (12:43)
[2017-10-06] MEDS ORDERED: BUPIVACAINE 0.25% PF 30 ML VIAL SUBQ ONE ×2 (12:44)
[2017-10-06] MEDS ORDERED: GLYCOPYRROLATE 1 MG/5 ML VIAL IVP ONE (13:00)
[2017-10-06] MEDS ORDERED: MIDAZOLAM 2 MG/2 ML VIAL IVP ONE (13:00)
[2017-10-06] MEDS ORDERED: KETAMINE 500 MG/10 ML VIAL IVP ONE (13:00)
[2017-10-06] MEDS ORDERED: LACTATED RINGERS 1,000 ML IV ONE ×2 (13:03→13:04)
[2017-10-06] MEDS: fentaNYL 100 MCG/2 ML VIAL ONE ×3 (13:10→13:51)
--- NOTE | 2017-10-06 14:02 | PROCEDURE REPORT ---
DATE OF PROCEDURE: 10/06/2017 00:00:00 PREOPERATIVE DIAGNOSIS: Iatrogenic right-sided hemopneumothorax. POSTOPERATIVE DIAGNOSIS: Iatrogenic right-sided hemopneumothorax. PROCEDURE PERFORMED: Removal of the anterior chest catheter and placement of right-sided 20-Turkmen ch est tube. REASON FOR PROCEDURE: This is an 87-year-old female who underwent a thoracentesis yesterday complicat ed by an iatrogenic pneumothorax. An anterior chest catheter was placed. However, her pneumothorax fa iled to resolve. FINDINGS: After obtaining informed consent from the patient, she was brought to the PACU and position ed supine. She was administered 2 grams of Ancef. She was administered sedation by Anesthesia. A time -out was taken according to protocol. The anterior chest tube was then removed and a dressing placed. She was then prepped and draped in the usual sterile fashion, 20 mL of lidocaine was injected in the proposed insertion site. An incision was then made at the approximate fifth intercostal space anteri or axillary line. This was deepened down to the underlying rib and the pleural cavity entered via a P frankie clamp over the rib. Upon entrance into the pleural cavity, there was a gush of air and a copious amount of serosanguineous fluid evacuated. The 20-Turkmen catheter was then inserted directed anterior ly. It was connected to the Pleur-Evac and sutured into place with two #2 silk sutures. Xeroform and a dressing were applied. The chest tube was secured to the Pleur-Evac. The patient tolerated the proc edure well. COMPLICATIONS: None. SPECIMENS: None. JOB #: [id number] EXT JOB #:[id number]
[2017-10-06] MEDS ORDERED: SENNA 8.6 MG TABLET PO PRN (16:08)
[2017-10-06] MEDS: ALPRAZolam 0.25 MG TABLET PO PRN (16:23)
[2017-10-06] MEDS: MORPHINE 2 MG/ML SYRINGE IVP PRN (16:23)
[2017-10-06] MEDS: fentaNYL 12 MCG PATCH TOP SCH (16:23)
[2017-10-06] MEDS: SENNA 8.6 MG TABLET PO SCH (16:23)
[2017-10-06] MEDS ORDERED: ONDANSETRON ODT 4 MG TABLET TL PRN (16:25)
[2017-10-06] MEDS ORDERED: ONDANSETRON 4 MG/2 ML VIAL ONE (16:48)
[2017-10-06] MEDS ORDERED: PROCHLORPERAZINE INJ 10 MG in SODIUM CHLORIDE 0.9% 50 ML IV ONE (16:52)
[2017-10-06] MEDS ORDERED: PROCHLORPERAZINE 10 MG/2 ML VIAL IVP SCH (17:00)
[2017-10-06] MEDS ORDERED: ONDANSETRON INJ 4 MG in SODIUM CHLORIDE 0.9% 50 ML IVP SCH (17:00)
[2017-10-06] MEDS ORDERED: ONDANSETRON 4 MG/2 ML VIAL IVP SCH (18:00)
[2017-10-06] MEDS: amLODIPine 5 MG TABLET PO SCH (20:57)
--- NOTE | 2017-10-06 21:06 | XRAY Preliminary Report ---
Exam: XR CHEST 1 VIEW IMPRESSION: 1. Decreasing small right hydropneumothorax. 2. Improved aeration right lung base. [facility] SITE ID: [id number]
--- NOTE | 2017-10-06 21:11 | XRAY Report ---
EXAM: CHEST RADIOGRAPHY EXAM DATE: 10/06/2017 08:51 PM. CLINICAL HISTORY: Shortness of breath. Right chest tube placement. COMPARISON: Earlier today at 1502. TECHNIQUE: 1 view. FINDINGS: Lungs/Pleura: Interval removal of the small caliber right chest tube with placement of a single large caliber right chest tube. Decreasing right apical pneumothorax now measuring 18 mm, previously 28 mm . Decreasing degree of mild blunting of the right lateral costophrenic angle. Minimal amount of air als o seen in the inferior right pleural space. Decreasing airspace consolidation or atelectasis right angie ng base. Left lung remains clear. Stable moderate right extrathoracic air. Mediastinum: Within exam limitations, the cardiomediastinal contour is normal. Other: None. IMPRESSION: 1. Decreasing small right hydropneumothorax. 2. Improved aeration right lung base. [facility] Referring Provider Line: [phone] SITE ID: [id number]
[2017-10-07] MEDS: SODIUM CHLORIDE FLUSH 0.9% 10 ML SYRINGE IVP SCH ×3 (06:02→20:41)
[2017-10-07] MEDS: oxyCODONE 5 MG TABLET PO PRN ×2 (06:11→20:41)
[2017-10-07 06:14] LABS: CALCIUM 8.4 mg/dL (8.5-10.3); CREATININE 0.8 mg/dL (0.4-1.0); PHOSPHORUS 3.6 mg/dL (2.5-4.6)
--- NOTE | 2017-10-07 07:00 | XRAY Preliminary Report ---
Exam: XR CHEST 1 VIEW IMPRESSION: 1. Stable to minimally increased right apical pneumothorax. 2. Right perihilar and basilar airspace disease is grossly stable. [facility] SITE ID: [id number]
--- NOTE | 2017-10-07 07:03 | XRAY Report ---
EXAM: CHEST RADIOGRAPHY EXAM DATE: 10/07/2017 06:36 AM. CLINICAL HISTORY: Right sided chest tube, follow-up COMPARISON: Exams from 10/06/2017 TECHNIQUE: 1 view. FINDINGS: Lungs/Pleura: There is a small right apical pneumothorax measuring 2.0 cm in maximal diameter, previo usly 1.8 cm. Right perihilar and basilar airspace disease again seen. Left lung is without consolidat ion or pneumothorax. Mediastinum: Borderline enlargement of the cardiac silhouette. Other: Subcutaneous gas along the right aspect of the chest is again seen. Right-sided chest tube is unchanged in position from the prior study. IMPRESSION: 1. Stable to minimally increased right apical pneumothorax. 2. Right perihilar and basilar airspace disease is grossly stable. [facility] Referring Provider Line: [phone] SITE ID: [id number]
[2017-10-07] MEDS: PATIENT OWN MED PO SCH (10:02)
[2017-10-07] MEDS: GABAPENTIN 100 MG CAPSULE PO SCH ×2 (10:16→20:41)
[2017-10-07] MEDS: ASPIRIN EC 81 MG TABLET PO SCH (10:16)
[2017-10-07] MEDS: POLYETHYLENE GLYCOL 3350 17 GM PACKET PO SCH (10:16)
[2017-10-07] MEDS: SENNA 8.6 MG TABLET PO SCH (10:16)
[2017-10-07] MEDS: amLODIPine 5 MG TABLET PO SCH (10:26)
[2017-10-07] MEDS: TRIAMT/HCTZ 37.5 MG/25 MG CAPSULE PO SCH (10:26)
--- NOTE | 2017-10-07 11:48 | PROVIDER PROGRESS NOTE ---
Subjective - General Admit Date: 10/05/17 Procedure Date: 10/06/17 Post Op Days: 1 Procedure Performed: right chest tube placement - Review of Systems Drain Type: chest tube Drain Output Description: serosanguinous Approximate mls Output: 600 General: positive: Weakness Pulmonary: positive: Other (improved respiratory status) Cardiovascular: positive: No symptoms Gastrointestinal: positive: No symptoms Musculoskeletal: positive: No symptoms Psychiatric: positive: Anxiety All Other Systems: positive: Reviewed and negative Objective - Patient Data Reviewed Vital Signs: Yes Vital Signs: Vital Signs x48h Temp Pulse Resp BP Pulse Ox 10/07/17 10:00 36.6 C 60 14 109/53 L 100 10/07/17 09:00 60 16 100 10/07/17 07:45 100 10/07/17 04:26 36.4 C L 56 L 16 116/50 L 100 Weight: Weight 10/05/17 10/06/17 10/07/17 23:59 23:59 23:59 Weight (kg) 57 kg 56.5 kg 55 kg Intake & Output: Intake and Output Totals x24h 10/05/17 10/06/17 10/07/17 23:59 23:59 23:59 Intake Total 550 630 430 Output Total 440 2092 1360 Balance 110 -8612 -930 - Lab Results Lab Results: 10/06/17 05:38 10/07/17 05:54 Other Lab Results: Lab Results x24hrs 10/07/17 Range/Units 05:54 Sodium 127 L (135-145) mmol/L Potassium 3.7 (3.5-5.0) mmol/L Chloride 91 L (101-111) mmol/L Carbon Dioxide 28 (21-32) mmol/L Anion Gap 8.0 (6-13) BUN 10 (6-20) mg/dL Creatinine 0.8 (0.4-1.0) mg/dL Estimated GFR (MDRD) 68 L (>89) Glucose 90 (70-100) mg/dL Calcium 8.4 L (8.5-10.3) mg/dL Phosphorus 3.6 (2.5-4.6) mg/dL Albumin 3.0 L (3.2-5.5) g/dL - Imaging Results Radiology Imaging: positive: Final report received (improved apical pneumo and hydrothorax) - Current Medications Current Medications: Current Medications Generic Name Dose Route Start Last Admin Trade Name Freq PRN Reason Stop Dose Admin Acetaminophen 650 mg 10/05/17 18:02 10/06/17 14:53 Tylenol PO 650 mg Q4HR PRN Administration Pain 1 to 4 Alprazolam 0.25 mg 10/06/17 16:04 10/06/17 16:23 Xanax PO 0.25 mg Q4HR PRN Administration Agitation Amlodipine Besylate 5 mg 10/06/17 21:00 10/07/17 10:26 Norvasc PO 5 mg DAILY [facility] Administration Aspirin 81 mg 10/06/17 09:00 10/07/17 10:16 Ecotrin PO 81 mg DAILY [facility] Administration Atenolol 25 mg 10/05/17 22:00 10/06/17 08:16 Tenormin PO 25 mg DAILY [facility] Administration Fentanyl 1 patch 10/06/17 17:00 10/06/17 16:23 Duragesic TOP 1 patch Q3D [facility] Administration Gabapentin 100 mg 10/06/17 09:00 10/07/17 10:16 Neurontin PO 100 mg BID [facility] Administration Morphine Sulfate 2 mg 10/06/17 16:06 10/06/17 16:23 Morphine IVP 2 mg Q4H PRN Administration PAIN Oxycodone HCl 5 mg 10/05/17 18:02 10/07/17 06:11 Roxicodone PO 5 mg Q4HR PRN Administration Pain 5 to 7 Patient Own Medication 1 each 10/06/17 09:00 10/07/17 10:02 Patient Own Medication PO Not Given DAILY [facility] Polyethylene Glycol 17 gm 10/07/17 09:00 10/07/17 10:16 Miralax PO 17 gm DAILY [facility] Administration Ranitidine HCl 150 mg 10/06/17 09:00 10/07/17 10:16 Zantac PO 150 mg DAILY [facility] Administration Senna 8.6 mg 10/06/17 17:00 10/07/17 10:16 Senokot PO 8.6 mg DAILY [facility] Administration Sodium Chloride 10 ml 10/05/17 22:00 10/07/17 06:02 Normal Saline Flush 0.9% IVP 10 ml Q8HR [facility] Administration Triamterene/HCTZ 1 cap 10/06/17 09:00 10/07/17 10:26 Dyazide PO 1 cap DAILY [facility] Administration - Physical Exam Wound/Incisions: positive: Healing well General Appearance: positive: No acute distress Respiratory: positive: Other (diminished right breath sounds but improved. Tiny air leak with cough. good respiratory variation.) Cardiovascular: positive: Regular rate & rhythm Extremities: positive: Pedal edema Neurologic/Psychiatric: positive: Oriented x3 Impression/Plan - Problem List Problem List: iatrogenic right pneumothorax - chest tube placed to water seal. Repeat CXR tomorrow AM. - DC pulse Ox. DC O2. - encourage ambulation - patient has poor social support. Only reports an older sister as family. Is unable to drive. Will likely removed chest tube tomorrow and will be medically stable for DC tomorrow. Social work consult for safe discharge
[2017-10-07] MEDS: ATENOLOL 25 MG TABLET PO SCH (15:55)
[2017-10-07] MEDS: ACETAMINOPHEN 325 MG TABLET PO PRN (16:05)
--- NOTE | 2017-10-07 16:15 | PROVIDER PROGRESS NOTE ---
Subjective - Prog Note Date Prog Note Date: 10/07/17 Prog Note Time: 08:00 - Subjective Pt reports feeling: Improved Subjective: Gin was sitting in her chair for her exam today. She denies SOB, chest pain, N /V or a new cough. She is tolerating less oxygen with her chest tube now to only water seal. Much less drainage noted. Current Medications - Current Medications Current Medications: Active Medications Acetaminophen (Tylenol) 650 mg PO Q4HR PRN PRN Reason: Pain 1 to 4 Last Admin: 10/07/17 16:05 Dose: 650 mg Alprazolam (Xanax) 0.25 mg PO Q4HR PRN PRN Reason: Agitation Last Admin: 10/06/17 16:23 Dose: 0.25 mg Amlodipine Besylate (Norvasc) 5 mg PO DAILY [facility] Last Admin: 10/07/17 10:26 Dose: 5 mg Aspirin (Ecotrin) 81 mg PO DAILY [facility] Last Admin: 10/07/17 10:16 Dose: 81 mg Atenolol (Tenormin) 25 mg PO DAILY [facility] Last Admin: 10/07/17 15:55 Dose: Not Given Fentanyl (Duragesic) 1 patch TOP Q3D [facility] Last Admin: 10/06/17 16:23 Dose: 1 patch Gabapentin (Neurontin) 100 mg PO BID [facility] Last Admin: 10/07/17 20:41 Dose: 100 mg Morphine Sulfate (Morphine) 2 mg IVP Q4H PRN PRN Reason: PAIN Last Admin: 10/06/17 16:23 Dose: 2 mg Ondansetron HCl (Zofran Odt) 4 mg TL Q4HR PRN PRN Reason: Nausea / Vomiting Oxycodone HCl (Roxicodone) 5 mg PO Q4HR PRN PRN Reason: Pain 5 to 7 Last Admin: 10/08/17 06:07 Dose: 5 mg Patient Own Medication (Patient Own Medication) 1 each PO DAILY [facility] Last Admin: 10/07/17 10:02 Dose: Not Given Polyethylene Glycol (Miralax) 17 gm PO DAILY [facility] Last Admin: 10/07/17 10:16 Dose: 17 gm Ranitidine HCl (Zantac) 150 mg PO DAILY [facility] Last Admin: 10/07/17 10:16 Dose: 150 mg Senna (Senokot) 8.6 mg PO DAILY [facility] Last Admin: 10/07/17 10:16 Dose: 8.6 mg Sodium Chloride (Normal Saline Flush 0.9%) 10 ml IVP Q8HR [facility] Last Admin: 10/08/17 06:07 Dose: 10 ml Sodium Chloride (Normal Saline Flush 0.9%) 10 ml IVP PRN PRN PRN Reason: NEEDED PER PROVIDER ORDERS Triamterene/HCTZ (Dyazide) 1 cap PO DAILY [facility] Last Admin: 10/07/17 10:26 Dose: 1 cap Atenolol [Tenormin] 25 mg PO DAILY 07/10/13 Aspirin [Aspirin EC] 81 mg PO DAILY 10/05/17 Gabapentin 100 mg PO BID 10/05/17 Triamterene/Hydrochlorothiazid [Triamterene-Hctz 37.5-25 mg Tb] 1 tab PO DAILY 10/05/17 raNITIdine [Zantac] 150 mg PO DAILY 10/05/17 oxyCODONE [Roxicodone] 5 mg PO Q4H PRN 10/06/17 Objective - Vital Signs/Intake & Output Reviewed Vital Signs: Yes Vital Signs: Vital Signs x48h Temp Pulse Resp BP Pulse Ox 10/07/17 15:57 36.9 C 66 18 133/59 H 100 10/07/17 11:45 36.4 C L 68 16 140/55 H 100 10/07/17 10:00 36.6 C 60 14 109/53 L 100 10/07/17 09:00 60 16 100 Intake & Output: Intake & Output 10/04/17 10/05/17 10/06/17 10/07/17 23:59 23:59 23:59 23:59 Intake Total 550 630 650 Output Total 440 1562 1370 Balance 110 -1755 -667 - Objective General Appearance: positive: Alert, Moderate distress Eyes Bilateral: positive: Normal inspection ENT: positive: ENT inspection nml, Pharynx nml Neck: positive: Nml inspection, Thyroid nml, No JVD, Trachea midline, Thyromegaly Respiratory: positive: No respiratory distress, Rhonchi (right) Cardiovascular: positive: Regular rate & rhythm, No gallop, Irregularly irregular Peripheral Pulses: 1+ Radial (R), 1+ Radial (L) Abdomen: positive: Non-tender, No organomegaly, Nml bowel sounds, No distention Back: positive: CVA tenderness (R) Skin: positive: Color nml, No rash, Warm, Dry Extremities: positive: Non-tender, Full ROM, Nml appearance, Pedal edema Neurologic/Psychiatric: positive: Oriented x3, Weakness, Sensory loss, Depressed mood/affect Reflexes: Bicep (R): 2+, Bicep (L): 2+ - Lab Results Fish Bones: 10/06/17 05:38 10/07/17 05:54 Other Labs: Lab Results x24hrs 10/07/17 Range/Units 05:54 Sodium 127 L (135-145) mmol/L Potassium 3.7 (3.5-5.0) mmol/L Chloride 91 L (101-111) mmol/L Carbon Dioxide 28 (21-32) mmol/L Anion Gap 8.0 (6-13) BUN 10 (6-20) mg/dL Creatinine 0.8 (0.4-1.0) mg/dL Estimated GFR (MDRD) 68 L (>89) Glucose 90 (70-100) mg/dL Calcium 8.4 L (8.5-10.3) mg/dL Phosphorus 3.6 (2.5-4.6) mg/dL Albumin 3.0 L (3.2-5.5) g/dL - Diagnostic Imaging Diagnostic Imaging Results: positive: Final report reviewed Diagnostic Imaging Comments: Chest x-ray 10/07/17: FINDINGS: Lungs/Pleura: There is a small right apical pneumothorax measuring 2.0 cm in maximal diameter, previously 1.8 cm. Right perihilar and basilar airspace disease again seen. Left lung is without consolidation or pneumothorax. Mediastinum: Borderline enlargement of the cardiac silhouette. Other: Subcutaneous gas along the right aspect of the chest is again seen. Right -sided chest tube is unchanged in position from the prior study. IMPRESSION: 1. Stable to minimally increased right apical pneumothorax. 2. Right perihilar and basilar airspace disease is grossly stable. Assessment/Plan - Problem List (1) Lung cancer Impression: Patient sees the [facility] clinic. Right lobe lung CA. Plan: Continued care. Now status post chest tube x2 that was put to water seal today. Qualifiers: Laterality: right (2) Pneumothorax on right Impression: Earlier in the day of admission, patient underwent a pleurocentesis with pleural fluid drained for worsening SOB. A post procedure x-ray showed a pneumothorax, so an anterior chest tube was inserted and remains to continuous wall suction. Plan: A revision of current chest tube was completed on 10/06/17. This was successfully completed and now patient has a chest tube in right lateral chest wall that is draining well. Water sealed today, maybe discontinue tomorrow, depending on x-ray. (3) SOB (shortness of breath) Impression: This is likely a consequence of her ongoing lung cancer and not exacerbated by her newly placed chest tube. Chest x-ray ordered as per chest tube protocol. Plan: Continue supplemental oxygen, and pain control. (4) GERD (gastroesophageal reflux disease) Impression: Patient has a history of this. Plan: Continue home treatment. Qualifiers: Esophagitis presence: esophagitis presence not specified Qualified Code(s) : K21.9 - Gastro-esophageal reflux disease without esophagitis (5) CATA (generalized anxiety disorder) Impression: This seems to be exacerbated with the acute situation. No home medications are listed. Plan: We will continue to manage pain. (6) Hypertension Impression: Blood pressure was noted to be 133/59, which is improved from yesterday. Although this may be from pain. Patient takes Dyazide, atenolol at home. Plan: Continue to monitor vital signs. Norvasc was added at 5mg PO daily. Qualifiers: Hypertension type: essential hypertension Qualified Code(s): I10 - Essential (primary) hypertension
[2017-10-08] MEDS: oxyCODONE 5 MG TABLET PO PRN ×2 (06:07→15:51)
[2017-10-08] MEDS: SODIUM CHLORIDE FLUSH 0.9% 10 ML SYRINGE IVP SCH ×3 (06:07→21:16)
--- NOTE | 2017-10-08 07:28 | XRAY Preliminary Report ---
Exam: XR CHEST 1 VIEW IMPRESSION: 1. Right pneumothorax demonstrates interim increase. 2. Increase in the right lung base atelectasis. Stable right upper lobe perihilar and left lung base atelectasis. Enter aspiration, particularly within the right lung base region would be difficult to e xclude with certainty. 3. Right-sided chest tube is relatively unchanged in position. [facility] SITE ID: [id number]
--- NOTE | 2017-10-08 07:50 | XRAY Report ---
EXAM: CHEST RADIOGRAPHY EXAM DATE: 10/08/2017 06:12 AM. CLINICAL HISTORY: Chest tube to water seal. Pneumothorax, chest tube. COMPARISON: 10/07/2017, 10/06/2017. TECHNIQUE: 1 view. FINDINGS: Lungs/Pleura: Medium size right-sided pneumothorax now measures 2.6 cm in the pleural separation at t he right apex versus 2 cm previously. Moderate consolidation and volume loss within the right lung ba se region is again seen, slightly progressed from the prior exam. There is a trace right-sided pleura l fluid. Right upper lobe perihilar atelectatic change is also again seen. Small linear left lung bas e atelectasis is stable. Right-sided chest tube tip projects along the paramediastinal aspect of the right upper hemithorax, just cephalad to the expected level of the right pulmonary hilum. Mediastinum: Cardiac silhouette is within normal limits when accounting for lung volumes and techniq ue. Moderate calcific atherosclerosis. Other: Moderate right chest wall subcutaneous emphysema is again noted. [id number] left shoulde r degenerative change. IMPRESSION: 1. Right pneumothorax demonstrates interim increase. 2. Increase in the right lung base atelectasis. Stable right upper lobe perihilar and left lung base atelectasis. Enter aspiration, particularly within the right lung base region would be difficult to e xclude with certainty. 3. Right-sided chest tube is relatively unchanged in position. [facility] Referring Provider Line: [phone] SITE ID: [id number]
--- NOTE | 2017-10-08 09:16 | PROVIDER PROGRESS NOTE ---
Subjective - Prog Note Date Prog Note Date: 10/08/17 Prog Note Time: 09:16 - Subjective Pt reports feeling: Improved Subjective: Gin says that she did not sleep too much last night. She denies SOB, chest pain, N/V, or a new cough. She admits to good pain control. Current Medications - Current Medications Current Medications: Active Medications Acetaminophen (Tylenol) 650 mg PO Q4HR PRN PRN Reason: Pain 1 to 4 Last Admin: 10/07/17 16:05 Dose: 650 mg Alprazolam (Xanax) 0.25 mg PO Q4HR PRN PRN Reason: Agitation Last Admin: 10/06/17 16:23 Dose: 0.25 mg Amlodipine Besylate (Norvasc) 5 mg PO DAILY [facility] Last Admin: 10/07/17 10:26 Dose: 5 mg Aspirin (Ecotrin) 81 mg PO DAILY [facility] Last Admin: 10/07/17 10:16 Dose: 81 mg Atenolol (Tenormin) 25 mg PO DAILY [facility] Last Admin: 10/07/17 15:55 Dose: Not Given Fentanyl (Duragesic) 1 patch TOP Q3D [facility] Last Admin: 10/06/17 16:23 Dose: 1 patch Gabapentin (Neurontin) 100 mg PO BID [facility] Last Admin: 10/07/17 20:41 Dose: 100 mg Morphine Sulfate (Morphine) 2 mg IVP Q4H PRN PRN Reason: PAIN Last Admin: 10/06/17 16:23 Dose: 2 mg Ondansetron HCl (Zofran Odt) 4 mg TL Q4HR PRN PRN Reason: Nausea / Vomiting Oxycodone HCl (Roxicodone) 5 mg PO Q4HR PRN PRN Reason: Pain 5 to 7 Last Admin: 10/08/17 06:07 Dose: 5 mg Patient Own Medication (Patient Own Medication) 1 each PO DAILY [facility] Last Admin: 10/07/17 10:02 Dose: Not Given Polyethylene Glycol (Miralax) 17 gm PO DAILY [facility] Last Admin: 10/07/17 10:16 Dose: 17 gm Ranitidine HCl (Zantac) 150 mg PO DAILY [facility] Last Admin: 10/07/17 10:16 Dose: 150 mg Senna (Senokot) 8.6 mg PO DAILY [facility] Last Admin: 10/07/17 10:16 Dose: 8.6 mg Sodium Chloride (Normal Saline Flush 0.9%) 10 ml IVP Q8HR [facility] Last Admin: 10/08/17 06:07 Dose: 10 ml Sodium Chloride (Normal Saline Flush 0.9%) 10 ml IVP PRN PRN PRN Reason: NEEDED PER PROVIDER ORDERS Triamterene/HCTZ (Dyazide) 1 cap PO DAILY [facility] Last Admin: 10/07/17 10:26 Dose: 1 cap Atenolol [Tenormin] 25 mg PO DAILY 07/10/13 Aspirin [Aspirin EC] 81 mg PO DAILY 10/05/17 Gabapentin 100 mg PO BID 10/05/17 Triamterene/Hydrochlorothiazid [Triamterene-Hctz 37.5-25 mg Tb] 1 tab PO DAILY 10/05/17 raNITIdine [Zantac] 150 mg PO DAILY 10/05/17 oxyCODONE [Roxicodone] 5 mg PO Q4H PRN 10/06/17 Objective - Vital Signs/Intake & Output Reviewed Vital Signs: Yes Vital Signs: Vital Signs x48h Temp Pulse Resp BP Pulse Ox 10/08/17 09:11 120/44 L 10/08/17 07:54 36.8 C 85 20 131/45 H 92 10/08/17 06:00 36.7 C 80 16 142/59 H 95 Intake & Output: Intake & Output 10/05/17 10/06/17 10/07/17 10/08/17 23:59 23:59 23:59 23:59 Intake Total 550 630 870 120 Output Total 440 2092 1870 1160 Balance 110 -1462 -1000 -1040 - Objective General Appearance: positive: No acute distress ENT: positive: ENT inspection nml, Pharynx nml, No signs of dehydration Neck: positive: Nml inspection, Thyroid nml, No JVD, Trachea midline Respiratory: positive: No respiratory distress, Rhonchi (right sided crackles.) Cardiovascular: positive: Regular rate & rhythm, No gallop, Systolic murmur Peripheral Pulses: 1+ Radial (R), 1+ Radial (L) Abdomen: positive: Non-tender, No organomegaly, Nml bowel sounds, No distention Back: positive: Nml inspection Skin: positive: Color nml, No rash, Warm, Dry Extremities: positive: Non-tender, Full ROM, No pedal edema Neurologic/Psychiatric: positive: Oriented x3, Weakness, Sensory loss Reflexes: Bicep (R): 3+, Bicep (L): 3+ - Lab Results Fish Bones: 10/06/17 05:38 10/07/17 05:54 - Diagnostic Imaging Diagnostic Imaging Results: positive: Final report reviewed Diagnostic Imaging Comments: Chest x-ray 10/08/17: FINDINGS: Lungs/Pleura: Medium size right-sided pneumothorax now measures 2.6 cm in the pleural separation at the right apex versus 2 cm previously. Moderate consolidation and volume loss within the right lung base region is again seen, slightly progressed from the prior exam. There is a trace right-sided pleural fluid. Right upper lobe perihilar atelectatic change is also again seen. Small linear left lung base atelectasis is stable. Right-sided chest tube tip projects along the paramediastinal aspect of the right upper hemithorax, just cephalad to the expected level of the right pulmonary hilum. Mediastinum: Cardiac silhouette is within normal limits when accounting for lung volumes and technique. Moderate calcific atherosclerosis. Other: Moderate right chest wall subcutaneous emphysema is again noted. Mild-to- moderate left shoulder degenerative change. IMPRESSION: 1. Right pneumothorax demonstrates interim increase. 2. Increase in the right lung base atelectasis. Stable right upper lobe perihilar and left lung base atelectasis. Enter aspiration, particularly within the right lung base region would be difficult to exclude with certainty. 3. Right-sided chest tube is relatively unchanged in position. Assessment/Plan - Problem List (1) Lung cancer Impression: Patient sees the [facility]. Right lobe lung CA. Plan: Continued care. Now status post chest tube x2 that was put to water seal today. Qualifiers: Laterality: right (2) Pneumothorax on right Impression: Earlier in the day of admission, patient underwent a pleurocentesis with pleural fluid drained for worsening SOB. A post procedure x-ray showed a pneumothorax, so an anterior chest tube was inserted and remains to continuous wall suction. Plan: A revision of current chest tube was completed on 10/06/17. This was successfully completed and now patient has a chest tube in right lateral chest wall that is draining well. Water sealed today, maybe discontinue tomorrow, depending on x-ray. (3) SOB (shortness of breath) Impression: This is likely a consequence of her ongoing lung cancer and not exacerbated by her newly placed chest tube. Chest x-ray ordered as per chest tube protocol. Plan: Continue supplemental oxygen, and pain control. (4) GERD (gastroesophageal reflux disease) Impression: Patient has a history of this. She has had no complaints of heart burn. Plan: Continue home treatment. Qualifiers: Esophagitis presence: esophagitis presence not specified Qualified Code(s) : K21.9 - Gastro-esophageal reflux disease without esophagitis (5) CATA (generalized anxiety disorder) Impression: This seems to be exacerbated with the acute situation. No home medications are listed. Plan: We will continue to manage pain. (6) Hypertension Impression: Blood pressure was noted to be 130/49, which is improved from yesterday. Although this may be from pain. Patient takes Dyazide, atenolol at home. Plan: Continue to monitor vital signs. Norvasc was added at 5mg PO daily. Qualifiers: Hypertension type: essential hypertension Qualified Code(s): I10 - Essential (primary) hypertension
[2017-10-08] MEDS: TRIAMT/HCTZ 37.5 MG/25 MG CAPSULE PO SCH (09:19)
[2017-10-08] MEDS: GABAPENTIN 100 MG CAPSULE PO SCH ×2 (09:19→21:15)
[2017-10-08] MEDS: POLYETHYLENE GLYCOL 3350 17 GM PACKET PO SCH (09:19)
[2017-10-08] MEDS: SENNA 8.6 MG TABLET PO SCH (09:19)
[2017-10-08] MEDS: ASPIRIN EC 81 MG TABLET PO SCH (09:19)
[2017-10-08] MEDS: amLODIPine 5 MG TABLET PO SCH (09:19)
[2017-10-08] MEDS: ATENOLOL 25 MG TABLET PO SCH (09:25)
[2017-10-08] MEDS: PATIENT OWN MED PO SCH (09:27)
--- NOTE | 2017-10-08 10:01 | PROVIDER PROGRESS NOTE ---
Subjective - General Admit Date: 10/05/17 Procedure Date: 10/06/17 Post Op Days: 2 Procedure Performed: right chest tube placement - Review of Systems Wound/Incisions: positive: Healing well Drain Type: chest tube Drain Output Description: serosanguinous Approximate mls Output: 200 General: positive: Weakness Pulmonary: positive: Other (improved respiratory status, minimal SOB) Cardiovascular: positive: No symptoms Gastrointestinal: positive: No symptoms Musculoskeletal: positive: No symptoms Psychiatric: positive: Anxiety All Other Systems: positive: Reviewed and negative Objective - Patient Data Reviewed Vital Signs: Yes Vital Signs: Vital Signs x48h Temp Pulse Resp BP Pulse Ox 10/08/17 09:11 120/44 L 10/08/17 07:54 36.8 C 85 20 131/45 H 92 10/08/17 06:00 36.7 C 80 16 142/59 H 95 Weight: Weight 10/06/17 10/07/17 10/08/17 23:59 23:59 23:59 Weight (kg) 56.5 kg 55 kg 55 kg Intake & Output: Intake and Output Totals x24h 10/06/17 10/07/17 10/08/17 23:59 23:59 23:59 Intake Total 630 870 240 Output Total 2092 1870 1240 Balance -1462 -1000 -1000 - Lab Results Lab Results: 10/06/17 05:38 10/07/17 05:54 - Imaging Results Radiology Imaging: positive: Other (increase in apical pneumothorax on waterseal ) - Current Medications Current Medications: Current Medications Generic Name Dose Route Start Last Admin Trade Name Freq PRN Reason Stop Dose Admin Acetaminophen 650 mg 10/05/17 18:02 10/07/17 16:05 Tylenol PO 650 mg Q4HR PRN Administration Pain 1 to 4 Alprazolam 0.25 mg 10/06/17 16:04 10/06/17 16:23 Xanax PO 0.25 mg Q4HR PRN Administration Agitation Amlodipine Besylate 5 mg 10/06/17 21:00 10/08/17 09:19 Norvasc PO 5 mg DAILY [facility] Administration Aspirin 81 mg 10/06/17 09:00 10/08/17 09:19 Ecotrin PO 81 mg DAILY [facility] Administration Atenolol 25 mg 10/05/17 22:00 10/08/17 09:25 Tenormin PO 25 mg DAILY [facility] Administration Fentanyl 1 patch 10/06/17 17:00 10/06/17 16:23 Duragesic TOP 1 patch Q3D [facility] Administration Gabapentin 100 mg 10/06/17 09:00 10/08/17 09:19 Neurontin PO 100 mg BID [facility] Administration Morphine Sulfate 2 mg 10/06/17 16:06 10/06/17 16:23 Morphine IVP 2 mg Q4H PRN Administration PAIN Oxycodone HCl 5 mg 10/05/17 18:02 10/08/17 06:07 Roxicodone PO 5 mg Q4HR PRN Administration Pain 5 to 7 Patient Own Medication 1 each 10/06/17 09:00 10/08/17 09:27 Patient Own Medication PO Not Given DAILY [facility] Polyethylene Glycol 17 gm 10/07/17 09:00 10/08/17 09:19 Miralax PO 17 gm DAILY [facility] Administration Ranitidine HCl 150 mg 10/06/17 09:00 10/08/17 09:19 Zantac PO 150 mg DAILY [facility] Administration Senna 8.6 mg 10/06/17 17:00 10/08/17 09:19 Senokot PO 8.6 mg DAILY [facility] Administration Sodium Chloride 10 ml 10/05/17 22:00 10/08/17 06:07 Normal Saline Flush 0.9% IVP 10 ml Q8HR [facility] Administration Triamterene/HCTZ 1 cap 10/06/17 09:00 10/08/17 09:19 Dyazide PO 1 cap DAILY [facility] Administration - Physical Exam Wound/Incisions: positive: Dressing dry and intact General Appearance: positive: No acute distress Respiratory: positive: Other (diminished right sided breathsounds) Cardiovascular: positive: Regular rate & rhythm Abdomen: positive: Non-tender Extremities: positive: Pedal edema Neurologic/Psychiatric: positive: Oriented x3 Impression/Plan - Problem List Problem List: iatrogenic pneumothorax with persistent pneumothorax - chest tube placed back to suction. Will repeat CXR tomorrow. No air leak noted today - PT to assess patient's discharge needs. Encourage ambulation - SW to facilitate safe DC once medically stable. Possibly tomorrow. - respiratory therapy to assist with IS, cough and deep breathing
[2017-10-08] MEDS: ACETAMINOPHEN 325 MG TABLET PO PRN ×2 (11:53→15:51)
[2017-10-08] MEDS: MORPHINE 2 MG/ML SYRINGE IVP PRN (18:32)
[2017-10-09] MEDS: SODIUM CHLORIDE FLUSH 0.9% 10 ML SYRINGE IVP SCH (05:16)
--- NOTE | 2017-10-09 06:24 | XRAY Preliminary Report ---
Exam: XR CHEST 1 VIEW IMPRESSION: Stable right pneumothorax measuring 2.6 cm. Right lung perihilar as well as basilar airsp omi disease is again seen. Small right effusion is stable. [facility] SITE ID: [id number]
--- NOTE | 2017-10-09 06:55 | XRAY Report ---
EXAM: CHEST RADIOGRAPHY EXAM DATE: 10/09/2017 06:00 AM. CLINICAL HISTORY: Pneumothorax. COMPARISON: 10/08/2017, 10/07/2017, 10/06/2017. TECHNIQUE: 1 view. FINDINGS: Lungs/Pleura: Right side pneumothorax is stable measuring 2.6 cm in pleural separation. Right-sided c hest tube tip projects over the right medial upper chest, just above the right hilum. Streaky as well as patchy airspace disease within the right lung is again noted, with volume loss. There is a small right-sided pleural effusion. Minimal left basilar atelectasis. Mediastinum: Cardiac silhouette is within normal limits when accounting for lung volumes and techniq ue. Moderate calcific atherosclerosis. Other: Small amount of soft tissue gas about the right hemithorax due to the chest tube. IMPRESSION: Stable right pneumothorax measuring 2.6 cm. Right lung perihilar as well as basilar airsp omi disease is again seen. Small right effusion is stable. [facility] Referring Provider Line: [phone] SITE ID: [id number]
[2017-10-09] MEDS: ATENOLOL 25 MG TABLET PO SCH (08:14)
[2017-10-09] MEDS: GABAPENTIN 100 MG CAPSULE PO SCH (08:14)
[2017-10-09] MEDS: amLODIPine 5 MG TABLET PO SCH (08:15)
[2017-10-09] MEDS: TRIAMT/HCTZ 37.5 MG/25 MG CAPSULE PO SCH (08:15)
[2017-10-09] MEDS: ALPRAZolam 0.25 MG TABLET PO PRN (08:15)
[2017-10-09] MEDS: SENNA 8.6 MG TABLET PO SCH (08:15)
[2017-10-09] MEDS: oxyCODONE 5 MG TABLET PO PRN (08:15)
[2017-10-09] MEDS: ASPIRIN EC 81 MG TABLET PO SCH (08:15)
[2017-10-09] MEDS: POLYETHYLENE GLYCOL 3350 17 GM PACKET PO SCH (08:16)
[2017-10-09] MEDS: PATIENT OWN MED PO SCH (08:20)
[2017-10-09 08:50] LABS: ALBUMIN 3.1 g/dL (3.2-5.5); ALBUMIN/GLOBULIN RATIO 0.9 (1.0-2.2); BILIRUBIN,TOTAL 0.5 mg/dL (0.2-1.0); CALCIUM 9.4 mg/dL (8.5-10.3); TOTAL PROTEIN 6.6 g/dL (6.7-8.2)
[2017-10-09 08:58] LABS: BASOPHILS % (AUTO) 0.3 %; EOSINOPHILS # (AUTO) 0.1 10^3/uL (0.0-0.7); EOSINOPHILS % (AUTO) 2.5 %; HGB - HEMOGLOBIN 12.2 g/dL (12.0-16.0); LYMPHOCYTES # (AUTO) 0.6 10^3/uL (1.5-3.5); LYMPHOCYTES % (AUTO) 11.6 %; MEAN CORPUSCULAR HEMOGLOBIN 32.1 pg (27.0-31.0); MEAN CORPUSCULAR HGB CONC 33.7 g/dL (32.0-36.0); MEAN CORPUSCULAR VOLUME 95.2 fL (81.0-99.0); MEAN PLATELET VOLUME 7.6 fL (7.9-10.8); MONOCYTES # (AUTO) 0.3 10^3/uL (0.0-1.0); MONOCYTES % (AUTO) 5.8 %; NEUTROPHILS % (AUTO) 79.8 %; PLT - PLATELET COUNT 179 10^3/uL (130-450); RED BLOOD COUNT 3.81 10^6/uL (4.20-5.40); RED CELL DISTRIBUTION WIDTH 13.4 % (12.0-15.0)
[2017-10-09 09:17] LABS: PLATELET ESTIMATE, MANUAL NORMAL (130-450,000) (NORMAL); PLATELET MORPHOLOGY 1+ LARGE PLATELETS (NORMAL); RBC MORPHOLOGY (MULTIPLE) NORMAL APPEARANCE (NORMAL)
[2017-10-09 09:42] VITALS: BP 128/50
[2017-10-09] MEDS: fentaNYL 12 MCG PATCH TOP SCH (11:06)
--- NOTE | 2017-10-09 11:56 | Discharge Plan ---
Discharge Plan Disposition: 01 Home, Self Care Condition: Good Diet: Regular Activity Restrictions: No Restrictions Shower Restrictions: No Driving Restrictions: No Instruction Topics: Pneumothorax Additional Instructions or Follow Up instructions: Return to ER for worsening shortness of breath or pleuritic chest pain. Take Tylenol 650 mg and Ibuprofen 600 mg Q 6 hours prn pain. Change dressing q 24 hours until hole is completely closed. No Smoking: If you smoke, Please STOP! Call for help. Follow-up with: Rica Talbert PA-C [Primary Care Provider] - Cristina Russo MD [Physician No Access] -
--- NOTE | 2017-10-09 12:02 | DISCHARGE SUMMARY ---
Discharge Summary Admit Date: 10/06/17 Discharge Date: 10/09/17 Discharging Provider: Dr. Clay Primary Care Provider: EKTA Talbert Condition at Discharge: Good Discharge Disposition: 01 Home, Self Care - DIAGNOSES Admission Diagnoses: iatrogenic pneumothorax Discharge Diagnoses with Status of Each Condition: iatrogenic penumothorax - HPI History of Present Illness: This is an 87-year-old female with recently diagnosed multilobular right lung cancer who was admitted on October 06 for an iatrogenic pneumothorax following a pleuracentesis. An anterior chest catheter was placed and she was admitted to the surgical service. The following morning a chest x-ray demonstrated inadequate drainage of the pneumothorax with a large hydrothorax. The anterior chest catheter was removed and a right-sided chest tube inserted. She had reexpansion of her lung and good resolution of the hydrothorax. The following day the chest tube was placed to waterseal, however, subsequent x-ray demonstrated worsening pneumothorax. The chest was subsequently placed back to suction for 24 hours. Today the chest tube was inadvertently removed and a follow-up chest x-ray demonstrated a tiny apical pneumothorax with good expansion of the lung with a persistent hydrothorax but improved since admission. She is maintaining adequate saturations on room air. She denies shortness of breath. She was evaluated by physical therapy yesterday who had initially recommended a fdc facility upon discharge, however, she was ambulating well in the [place] today and today PT is recommending a discharge to home. Her niece is available to stay at home with her for at least 24 hours upon discharge and to help her arrange her subsequent oncologic care. - ALLERGIES Allergies/Adverse Reactions: Allergies Allergy/AdvReac Type Severity Reaction Status Date / Time neomycin [Neomycin] Allergy Unknown unknown Verified 06/12/17 10:33 tetracaine Allergy Unknown unknown Verified 06/12/17 10:33 - MEDICATIONS Home Medications: Ambulatory Orders Medication Instructions Recorded Confirmed Atenolol [Tenormin] 25 mg PO DAILY 07/10/13 10/05/17 Aspirin [Aspirin EC] 81 mg PO DAILY 10/05/17 10/05/17 Gabapentin 100 mg PO BID 10/05/17 10/05/17 Triamterene/Hydrochlorothiazid 1 tab PO DAILY 10/05/17 10/05/17 [Triamterene-Hctz 37.5-25 mg Tb] raNITIdine [Zantac] 150 mg PO DAILY 10/05/17 10/05/17 oxyCODONE [Roxicodone] 5 mg PO Q4H PRN 10/06/17 10/06/17 - PHYSICAL EXAM AT DISCHARGE General Appearance: positive: No acute distress Respiratory: positive: No respiratory distress Cardiovascular: positive: Regular rate & rhythm Abdomen: positive: Non-tender, No distention Extremities: positive: Pedal edema Neurologic/Psychiatric: positive: Oriented x3 - LABS Result Diagrams: 10/09/17 08:15 10/09/17 08:15 - FOLLOW UP Follow Up: Dr. Russo, oncologist - TIME SPENT Time Spent in Discharge (Minutes): 30
--- NOTE | 2017-10-09 13:26 | XRAY Report ---
EXAM: CHEST RADIOGRAPHY EXAM DATE: 10/09/2017 11:13 AM. CLINICAL HISTORY: Chest tube out. COMPARISON: 10/09/2017. TECHNIQUE: 1 view. FINDINGS: Lungs/Pleura: Right thoracostomy tube has been removed. There is a right apical pneumothorax measurin g 14 mm of apical pleural separation, previously 26 mm. There is similar right basal opacity suggesti ng small effusion and atelectasis and or consolidation. Stable mild right chest wall emphysema. Heart and mediastinum appear stable. Left lung is clear. Mediastinum: As above. Other: None. IMPRESSION: Right thoracostomy tube has been removed. Right apical pneumothorax appears smaller than on the prior study. Similar right basal opacity. [facility] Referring Provider Line: [phone] SITE ID: [id number]
--- NOTE | 2017-10-11 11:19 | XRAY Report ---
ONE VIEW CHEST: 10/06/2017 COMPARISON: One view chest 10/05/2017. INDICATION: Right chest tube placement. TECHNIQUE: Frontal chest view only. FINDINGS: Apparent interval trade out of right chest tube with marked interval subcutaneous emphysema. Decreased pleural fluid is noted. Previous pneumothorax on the right may be present, but is not as well visualized. Stable appearance of the mediastinum. The left lung appears clear. IMPRESSION APPARENT CHANGE OUT OF RIGHT CHEST TUBE. IMPROVED APPEARANCE OF THE RIGHT THORAX WITH DECREASED FLUID. PREVIOUS PNEUMOTHORAX IS NOT WELL VISUALIZED. THERE IS NEW SUBCUTANEOUS EMPHYSEMA FOLLOWING CHEST TUBE EXCHANGE. MTDD
--- NOTE | 2017-11-03 09:54 | PROVIDER PROGRESS NOTE ---
Objective - Lab Results Fish Bones: 10/09/17 08:15 10/09/17 08:15 Assessment/Plan - Problem List (1) Pneumothorax on right Impression: This note serves as an addendum to H and P dated 10/06/17. The patient is not expected ot be hospitalized for more than 96 hours and if the patient is still here after 96 hours we will reassess the patient at that time.
== END 2017-10-09 15:20 | disposition home or self-care (01) | DRG 200 ==
LOC: ED 15:45 → MS2 18:02
PROVIDERS: ADMIT Surgery; ATTEND Surgery
PROC: 0WP9X3Z Removal of Infusion Device from Right Pleural Cavity, External Approach (ICD-10-PCS; 2017-10-06)
PROC: 0W9930Z Drainage of Right Pleural Cavity with Drainage Device, Percutaneous Approach (ICD-10-PCS; principal; 2017-10-06 10:00)
DX: J95.811 Postprocedural pneumothorax (principal); J94.8 Other specified pleural conditions; C34.31 Malignant neoplasm of lower lobe, right bronchus or lung; C34.2 Malignant neoplasm of middle lobe, bronchus or lung; J91.0 Malignant pleural effusion; Y84.2 Radiological procedure and radiotherapy as the cause of abnormal reaction of the patient, or of later complication, without mention of misadventure at the time of the procedure; Y92.238 Other place in hospital as the place of occurrence of the external cause; I10 Essential (primary) hypertension; K21.9 Gastro-esophageal reflux disease without esophagitis; C34.91 Malignant neoplasm of unspecified part of right bronchus or lung; F41.1 Generalized anxiety disorder; G89.29 Other chronic pain; M54.5 Low back pain; M19.90 Unspecified osteoarthritis, unspecified site; Z60.2 Problems related to living alone; Z79.82 Long term (current) use of aspirin; J90 Pleural effusion, not elsewhere classified
CPT/HCPCS: 32551; 32555; 36415; 71010; 71020; 80053; 80069; 81599; 83605; 83735; 85025; 85610; 85730; 87070; 87205; 88108; 88305; 89051; 96374; 96375; 99284

== ENCOUNTER 2017-11-08 16:55 | Outpatient (CLI) | payer MEDICARE, OTHER ==
--- NOTE | 2017-11-09 15:29 | Ultrasound Report ---
EXAM: BILATERAL LOWER EXTREMITY VENOUS ULTRASOUND EXAM DATE: 11/08/2017 06:07 PM. CLINICAL HISTORY: Worsening bilateral lower extremity edema. New diagnosis of lung cancer. COMPARISON: None. TECHNIQUE: Real-time sonographic vascular imaging was performed by the spool salvager through the lower extremities utilizing both color-flow and Doppler spectral analysis. Multiple underwriting sales representative static i mages were saved for review. FINDINGS: Right: Common Femoral Vein (CFV): Normal. CFV-GSV Junction: Normal. Profunda Femoral Vein (PFV): Normal. Femoral Vein (FV) Prox: Normal. Femoral Vein (FV) Mid: Normal. Femoral Vein (FV) Dist: Normal. Popliteal Vein: Normal. Posterior Tibial Veins: Normal. Peroneal Veins: Normal. Left: Common Femoral Vein (CFV): Normal. CFV-GSV Junction: Normal. Profunda Femoral Vein (PFV): Normal. Femoral Vein (FV) Prox: Normal. Femoral Vein (FV) Mid: Normal. Femoral Vein (FV) Dist: Normal. Popliteal Vein: Normal. Posterior Tibial Veins: Normal. Peroneal Veins: Normal. Other: None. IMPRESSION: No evidence for deep venous thrombosis bilaterally. [facility] Referring Provider Line: [phone] SITE ID: [id number]
== END 2017-11-08 16:56 | disposition home or self-care (01) ==
LOC: DI 16:55
PROVIDERS: ATTEND Physician Assistant Medical
DX: R60.9 Edema, unspecified (principal); C34.90 Malignant neoplasm of unspecified part of unspecified bronchus or lung
CPT/HCPCS: 93970

== ENCOUNTER 2018-03-08 11:40 | Inpatient (IN) | payer MEDICARE, OTHER ==
--- NOTE | 2018-03-08 15:57 | HISTORY & PHYSICAL EXAMINATION ---
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 She had a follow up appointment in our [facility] oncology clinic and saw Dr. Cristina Russo. She was found to be hyponatremic with a sodium of only 119, confused, new low back pain, and weakness. The Hospitalist service was contacted for admission to correction of electrolyte imbalance and for pain control. History - Past Medical History Cardiovascular: reports: Hypertension Respiratory: reports: Shortness of breath Neuro: reports: None Endocrine/Autoimmune: reports: None GI: reports: GERD : reports: Incontinence, Nocturia, Frequency HEENT: reports: Chronic vision loss, Chronic hearing loss Psych: reports: Anxiety Musculoskeletal: reports: Osteoarthritis, Chronic back pain Derm: reports: None MRSA Hx?: No - Past Surgical History HEENT: reports: Cataracts Derm: reports: Other - Family & Social History Family History: Mother: , Cancer, Father: , Hypertension, Sister : Alive and Well Family History Comment/Other: The patient's mother had an unknown form of cancer , father with HTN, and she has a sister who is alive and well. Living arrangement: At home Living Situation: Alone Social History Notes: The patient lives alone. 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 She denies ETOH, tobacco or illicit drug use. She states that she was exposed to many environmental toxins. She wishes to be a FULL code. - Substance History Use: Uses substance without health or social issues: NONE Abuse: Recurrent use of substance despite neg consequences: NONE Dependence: Experiences withdrawal or developed tolerances: NONE - POLST Patient has POLST: No POLST Status: Full Code Meds/Allgy - Home Medications Home Medications: Ambulatory Orders Medication Instructions Recorded Confirmed Aspirin [Aspirin EC] 81 mg PO DAILY #30 10/09/17 03/08/18 Atenolol [Tenormin] 25 mg PO DAILY #30 10/09/17 03/08/18 Gabapentin 100 mg PO BID #30 10/09/17 03/08/18 Erlotinib HCl [Tarceva] 150 mg PO DAILY 11/09/17 03/08/18 Alendronate Sodium [Alendronate 70 mg PO .ONCE WEEKLY PRN 03/08/18 03/08/18 Sodium] Triamterene/Hydrochlorothiazid 1 tab PO DAILY 03/08/18 03/08/18 [Triamterene-Hctz 37.5-25 mg Tb] - Allergies Allergies/Adverse Reactions: Allergies Allergy/AdvReac Type Severity Reaction Status Date / Time neomycin [Neomycin] Allergy Unknown unknown Verified 06/12/17 10:33 tetracaine Allergy Unknown unknown Verified 06/12/17 10:33 Review of Systems - Constitutional Constitutional: reports: Fatigue, Weakness, Poor appetite, Weight loss - Eyes Eyes: reports: Vision loss - Ears, Nose & Throat Ears, Nose & Throat: reports: Hearing loss - Cardiovascular Cariovascular: reports: Syncope, Exertional dyspnea, Decr. exercise tolerance - Respiratory Respiratory: reports: Cough, SOB at rest, SOB with exertion - Gastrointestinal Gastrointestinal: reports: Reflux/heartburn, Poor appetite - Genitourinary Genitourinary: reports: Dysuria, Incontinence, Nocturia - Musculoskeletal Musculoskeletal: reports: Muscle aches - Integumentary Integumentary: reports: Dryness - Neurological Neurological: reports: General weakness, Pre-existing deficit, Abnormal gait, Incoordination - Psychiatric Psychiatric: reports: Depression, Anxiety - Hematologic/Lymphatic Hematologic/Lymphatic: reports: Anemia, Recurrent infections - All Other Systems All Other Systems: reports: Reviewed and negative Exam - Vital Signs Reviewed Vital Signs: Yes Vital Signs: Vital Signs x48h Temp Pulse Resp BP Pulse Ox 03/08/18 15:27 36.6 C 63 20 139/44 H 100 - Physical Exam General Appearance: positive: No acute distress, Anxious Eyes Bilateral: positive: Normal inspection ENT: positive: ENT inspection nml, Dry mucous membranes Neck: positive: Nml inspection, Thyroid nml, No JVD, Trachea midline, Stiff neck Respiratory: positive: Chest non-tender Cardiovascular: positive: Regular rate & rhythm, Systolic murmur, Decreased pulse(s) Peripheral Pulses: positive: 1+ Abdomen: positive: Non-tender, No organomegaly, Nml bowel sounds, No distention Back: positive: Nml inspection Skin: positive: No rash, Warm, Dry, Pallor Extremities: positive: Non-tender, Pedal edema, Joint swelling Neurologic/Psychiatric: positive: Disoriented to place, Disoriented to time, Weakness, Sensory loss, Slurred/abnml speech, Depressed mood/affect Reflexes: Bicep (R): 1+, Bicep (L): 1+ Conclusion/Plan - Problem List (1) Hyponatremia Conclusion/Plan: The patient was attending a clinic follow up to see Dr. Russo and was found to be moderately confused as per [facility] clinic staff and a friend that she relies on for transport help. Labs were checked and she had a low sodium of only 119. Plan: Monitor labs, NS @ 100ml, and telemetry. (2) Cancer of right lung Conclusion/Plan: The patient has a known history of this and had a right chest tube on her last hospital stay related to CA. The cancer is being treated with PO medications, that is now on hold until further notice per [id number] conversation with Dr. Russo and myself. I suspect that the erlotinib is the likely culprit, although hyponatremia is not a direct side effect. Plan: Continue to monitor, VS and provide support. (3) CATA (generalized anxiety disorder) Conclusion/Plan: The patient seems worried both of the times that I have been her provider and admits to being a "worrier". She notes that she does not have much family support even though she devoted much of her life caring for family. She is not prescribed any antidepressants or anti-anxiety medications as per home med list review. Plan: Consider adding SSRI before discharge. (4) GERD (gastroesophageal reflux disease) Conclusion/Plan: The patient has a known history of this but denies symptoms today. She is not prescribed a PPI at home. Plan: Monitor symptoms. Qualifiers: Esophagitis presence: esophagitis presence not specified Qualified Code(s) : K21.9 - Gastro-esophageal reflux disease without esophagitis (5) Hypertension Conclusion/Plan: The patient has a known history of this and is prescribed atenolol at home. B/ P upon arriving to the nursing floor are 126/47. Plan: Hold meds and add slowly due to acute illness. Qualifiers: Hypertension type: essential hypertension Qualified Code(s): I10 - Essential (primary) hypertension - Lab Results Lab results reviewed: Yes Fish Bones: 03/10/18 05:20 03/10/18 05:20 - Diagnostic Imaging Results Diagnostic Imaging Results: positive: Prelim report reviewed, Final report reviewed - EKG Results EKG Interpreted Independently: Yes Core Measures - Anticipated LOS I expect patient to be DC'd or transferred within 96 hours.: Yes - DVT/VTE - Prophylaxis VTE/DVT Device ordered at admit?: Yes VTE/DVT Prophylaxis med ordered at admit?: Yes - Stroke - Rehab Assessment Rehab services assessment to be ordered?: No - AMI - Statin at Admit Aspirin Prescribed on Admit: Yes
[2018-03-08] MEDS: SODIUM CHLORIDE FLUSH 0.9% 10 ML SYRINGE IVP SCH (16:08)
[2018-03-08] MEDS: SODIUM CHLORIDE 0.9% 1,000 ML IV SCH (16:08)
[2018-03-08] MEDS ORDERED: IPRATROPIUM/ALBUTEROL 3 ML NEB INH PRN (16:20)
[2018-03-08] MEDS ORDERED: ONDANSETRON 4 MG/2 ML VIAL IVP PRN (19:58)
[2018-03-08] MEDS ORDERED: ROCURONIUM 50 MG/5 ML VIAL IVP ONE (20:49)
[2018-03-08] MEDS: ACETAMINOPHEN 500 MG TABLET PO PRN (21:01)
[2018-03-08] MEDS: GABAPENTIN 100 MG CAPSULE PO SCH (22:32)
[2018-03-08] MEDS: IPRATROPIUM/ALBUTEROL 3 ML NEB INH SCH (22:52)
[2018-03-09] MEDS: SODIUM CHLORIDE FLUSH 0.9% 10 ML SYRINGE IVP SCH ×3 (00:56→18:00)
[2018-03-09] MEDS: SODIUM CHLORIDE 0.9% 1,000 ML IV SCH (01:13)
[2018-03-09] MEDS: SODIUM CHLORIDE FLUSH 0.9% 10 ML SYRINGE IVP PRN ×2 (02:23→13:46)
[2018-03-09] MEDS: HYDROmorphone 0.5 MG/0.5 ML SYRINGE IVP PRN ×2 (02:25→13:45)
[2018-03-09] MEDS ORDERED: MIN OIL/DIMETHICON/COCONUT OIL 92 GM TUBE TOP PRN (04:40)
[2018-03-09 06:03] LABS: BASOPHILS % (AUTO) 0.2 %; EOSINOPHILS # (AUTO) 0.1 10^3/uL (0.0-0.7); HGB - HEMOGLOBIN 9.9 g/dL (12.0-16.0); LYMPHOCYTES # (AUTO) 0.4 10^3/uL (1.5-3.5); LYMPHOCYTES % (AUTO) 10.8 %; MEAN CORPUSCULAR HEMOGLOBIN 29.5 pg (27.0-31.0); MEAN CORPUSCULAR HGB CONC 32.8 g/dL (32.0-36.0); MEAN CORPUSCULAR VOLUME 90.1 fL (81.0-99.0); MEAN PLATELET VOLUME 6.5 fL (7.9-10.8); MONOCYTES # (AUTO) 0.4 10^3/uL (0.0-1.0); MONOCYTES % (AUTO) 10.4 %; NEUTROPHILS # (AUTO) 2.7 10^3/uL (1.5-6.6); NEUTROPHILS % (AUTO) 76.6 %; PLT - PLATELET COUNT 203 10^3/uL (130-450); RED BLOOD COUNT 3.35 10^6/uL (4.20-5.40); RED CELL DISTRIBUTION WIDTH 14.5 % (12.0-15.0); WHITE BLOOD COUNT 3.5 x10^3/uL (4.8-10.8)
[2018-03-09 07:14] LABS: % IRON SATURATION 13 % (20-50); ALBUMIN 2.9 g/dL (3.2-5.5); ALKALINE PHOSPHATASE 50 IU/L (42-121); ALT ALANINE AMINOTRANSFERASE 18 IU/L (10-60); AST ASPARTATE AMINOTRANSFERASE 23 IU/L (10-42); BILIRUBIN,TOTAL 0.7 mg/dL (0.2-1.0); BUN - BLOOD UREA NITROGEN 15 mg/dL (6-20); CALCIUM 8.2 mg/dL (8.5-10.3); CARBON DIOXIDE - CO2 26 mmol/L (21-32); CHLORIDE 102 mmol/L (101-111); CREATININE 0.7 mg/dL (0.4-1.0); GFR - MDRD 79 (>89); GLUCOSE 96 mg/dL (70-100); IRON 41 ug/dL (28-170); SODIUM 132 mmol/L (135-145); TOTAL IRON BINDING CAPACITY 319 ug/dL (250-450); TOTAL PROTEIN 5.8 g/dL (6.7-8.2); TRANSFERRIN 228 mg/dL (192-382)
[2018-03-09 07:22] LABS: CRP - C-REACTIVE PROTEIN < 1.0 mg/dL (0-1.0)
[2018-03-09] MEDS: IPRATROPIUM/ALBUTEROL 3 ML NEB INH SCH ×2 (08:05→23:13)
[2018-03-09] MEDS: ASPIRIN EC 81 MG TABLET PO SCH (08:28)
[2018-03-09] MEDS: GABAPENTIN 100 MG CAPSULE PO SCH ×2 (08:28→20:27)
[2018-03-09] MEDS: POLYETHYLENE GLYCOL 3350 17 GM PACKET PO SCH (08:28)
[2018-03-09] MEDS ORDERED: CALCIUM CARBONATE CHEW 500 MG TABLET PO PRN (15:04)
--- NOTE | 2018-03-09 15:05 | PROVIDER PROGRESS NOTE ---
Assessment/Plan - Problem List (1) Cancer of right lung Assessment/Plan: The patient has ongoing active cancer and is status post a right chest tube on her last hospital stay related to CA. The cancer is being treated with PO medications, that is now on hold until further notice per [id number] conversation with Dr. Russo and myself. I suspect that the erlotinib is the likely culprit, although hyponatremia is not a direct side effect. Plan: Continue to monitor, VS and provide support. (2) Hyponatremia Assessment/Plan: The patient was attending a clinic follow up to see Dr. Russo and was found to be moderately confused as per [facility] clinic staff and a friend that she relies on for transport help. Labs were checked and she had a low sodium of only 119. She was given normal saline overnight and at a mid-day check she was found to be nearly normal at 132. Her mental status had improved and her telemetry was non-remarkable. Plan: Monitor labs, and watch for worsening mental status. (3) CATA (generalized anxiety disorder) Assessment/Plan: The patient seems worried both of the times that I have been her provider and admits to being a "worrier". She notes that she does not have much family support even though she devoted much of her life caring for family. She is not prescribed any antidepressants or anti-anxiety medications as per home med list review. Plan: Consider adding SSRI before discharge. (4) GERD (gastroesophageal reflux disease) Qualifiers: Esophagitis presence: esophagitis presence not specified Qualified Code(s) : K21.9 - Gastro-esophageal reflux disease without esophagitis (5) Hypertension Qualifiers: Hypertension type: essential hypertension Qualified Code(s): I10 - Essential (primary) hypertension Assessment/Plan: The patient has a known history of this and is prescribed atenolol at home. B/ P today was 120/40, so I will continue to hold her home medications. Plan: Hold meds and add slowly due to acute illness. - Current Meds Current Meds: Current Medications Generic Name Dose Route Start Last Admin Trade Name Freq PRN Reason Stop Dose Admin Acetaminophen 500 mg 03/08/18 20:20 03/08/18 21:01 Tylenol PO 500 mg Q4HR PRN Administration Pain or Fever > 38C (100.4F) Albuterol/Ipratropium 3 ml 03/08/18 19:00 03/09/18 08:05 Duoneb INH 3 ml RTBID HOLLY Administration Aspirin 81 mg 03/09/18 09:00 03/09/18 08:28 Ecotrin PO 81 mg DAILY HOLLY Administration Gabapentin 100 mg 03/08/18 21:00 03/09/18 08:28 Neurontin PO 100 mg BID HOLLY Administration Hydromorphone HCl 0.5 mg 03/08/18 19:58 03/09/18 13:45 Dilaudid Inj Syringe IVP 0.5 mg Q2H PRN Administration PAIN Ondansetron HCl 4 mg 03/08/18 19:58 03/09/18 02:25 Zofran Inj IVP 4 mg Q4HR PRN Administration Nausea / Vomiting Polyethylene Glycol 17 gm 03/09/18 09:00 03/09/18 08:28 Miralax PO Not Given DAILY HOLLY Sodium Chloride 10 ml 03/08/18 14:40 03/09/18 13:46 Normal Saline Flush 0.9% IVP 10 ml PRN PRN Administration NEEDED PER PROVIDER ORDERS Sodium Chloride 10 ml 03/08/18 17:00 03/09/18 08:29 Normal Saline Flush 0.9% IVP 10 ml 0100,0900,1700 HOLLY Administration - Lab Result Lab results reviewed: Yes Fish Bone Diagrams: 03/10/18 05:20 03/10/18 05:20 - EKG Results EKG Interpreted Independently: Yes - Additional Planning Condition/Complexity: Improved My Orders: My Active Orders 03/08/18 14:40 Activity Orders [RC] Routine IO [RC] IOSHIFT Initiate Bowel Care Protocol [RC] .protocol Initiate Line Care Protocol [RC] .protocol Initiate Personal Care Protoco [RC] .protocol Oxygen Therapy [RC] .PRN Telemetry (24 Hour) [RC] Q4HR Vital Signs [RC] Q4HR Sodium Chloride Flush 0.9% [Normal Saline Flush 0.9%] 10 ml IVP PRN PRN Code Status [OTHERS] Routine Condition of Patient [OTHERS] Routine DVT Prophylaxis [OTHERS] Routine 03/08/18 14:42 Daily Weight [RC] 0600 SCDs [RC] QSHIFT Telemetry- [RC] Routine 03/08/18 16:20 Ipratropium/Albuterol [Duoneb] 3 ml INH Q4HR PRN 03/08/18 16:21 Acapella (Flutter Valve Device [RC] .TID Nebulizer/MDI Tx. [RC] .BID/ Q4 PRN 03/08/18 17:00 Sodium Chloride Flush 0.9% [Normal Saline Flush 0.9%] 10 ml IVP 0100,0900, 1700 03/08/18 18:32 Nutrition Consult [CONS] Routine 03/08/18 19:00 Ipratropium/Albuterol [Duoneb] 3 ml INH RTBID 03/08/18 19:58 HYDROmorphone INJ SYRINGE [Dilaudid Inj Syringe] 0.5 mg IVP Q2H PRN Ondansetron Inj [Zofran Inj] 4 mg IVP Q4HR PRN 03/08/18 19:59 Pure Wick [Female External Catheter Care] [RC] QSHIFT 03/08/18 21:00 Gabapentin [Neurontin] 100 mg PO BID 03/08/18 Dinner Regular Diet [DIET] 03/09/18 URINALYSIS, Reflex to Micro & Cult If [UA, MICROSCOPIC & CULT IF] [URIN] Routine 03/09/18 04:40 Min Oil/Dimeth/Coconut Oil Crm [Cavilon] 1 applic TOP PRN PRN 03/09/18 09:00 Aspirin EC [Ecotrin] 81 mg PO DAILY Polyethylene Glycol 3350 [Miralax] 17 gm PO DAILY 03/09/18 15:04 Calcium Carbonate [Tums] 500 mg PO Q4H PRN 03/09/18 16:00 Calcium Carbonate [Tums] 500 mg PO BID 03/10/18 05:00 CBC - COMP BLD CT W/AUTO DIFF [HEME] DAILYLAB CMP [COMPREHENSIVE METABOLIC PANEL] [CHEM] DAILYLAB CRP - C-REACTIVE PROTEIN [CHEM] DAILYLAB ESR- ERYTHROCYTE SEDIMENT RATE [HEME] DAILYLAB 03/11/18 05:00 CBC - COMP BLD CT W/AUTO DIFF [HEME] DAILYLAB CMP [COMPREHENSIVE METABOLIC PANEL] [CHEM] DAILYLAB CRP - C-REACTIVE PROTEIN [CHEM] DAILYLAB ESR- ERYTHROCYTE SEDIMENT RATE [HEME] DAILYLAB Consult/Specialty: Oncology Plan Discussed with:: Patient Time Spent: 15-30 minutes Subjective - Subjective Patient Reports: Feeling Better (Gin complains of not getting any sleep, but admits to feeling better since admission. She denies SOB, chest pain, N/V or a new cough.) Nursing Reports: No Complaints Objective Vital Signs: Vital Signs - 24 hr 03/08/18 03/08/18 03/09/18 15:27 20:48 01:15 Temperature 36.6 C 36.6 C 36.7 C Heart Rate Heart Rate [ 63 70 62 Brachial] Respiratory 20 16 17 Rate Blood Pressure 139/44 H 126/47 L 150/52 H [Right Brachial artery] O2 Saturation 100 98 99 03/09/18 03/09/18 03/09/18 05:59 08:08 12:17 Temperature 36.6 C 36.8 C 36.7 C Heart Rate 74 Heart Rate [ 62 65 70 Brachial] Respiratory 16 16 16 Rate Blood Pressure 129/51 L 148/47 H 120/40 L [Right Brachial artery] O2 Saturation 98 100 100 Oxygen O2 Source [Without Activity] Room air O2 Source Room air I&O (Last 24 Hrs): Intake and Output Totals x24h 03/07/18 03/08/18 03/09/18 23:59 23:59 23:59 Intake Total 380 1508.333 Output Total 1900 Balance -1520 1508.333 General: Alert HEENT: Atraumatic Neck: Supple, No JVD Lymphatic: no adenopathy Neuro: Alert, Focal Deficits, CN 2-12 Grossly Intact Cardiovascular: Regular rate, Normal S1, Normal S2 Respiratory: Chest non-tender, No respiratory distress, Breath sounds nml Abdomen: Normal bowel sounds, Soft, No tenderness, No masses Genitourinary: No Bleeding Extremities: No clubbing, No cyanosis, No tenderness/swelling Skin: No rashes, No breakdown - Results Results: Laboratory Results WBC 3.5 x10^3/uL (4.8-10.8) L 03/09/18 05:25 RBC 3.35 10^6/uL (4.20-5.40) L 03/09/18 05:25 Hgb 9.9 g/dL (12.0-16.0) L 03/09/18 05:25 Hct 30.2 % (37.0-47.0) L 03/09/18 05:25 MCV 90.1 fL (81.0-99.0) 03/09/18 05:25 MCH 29.5 pg (27.0-31.0) 03/09/18 05:25 MCHC 32.8 g/dL (32.0-36.0) 03/09/18 05:25 RDW 14.5 % (12.0-15.0) 03/09/18 05:25 Plt Count 203 10^3/uL (130-450) 03/09/18 05:25 MPV 6.5 fL (7.9-10.8) L 03/09/18 05:25 Neut # 2.7 10^3/uL (1.5-6.6) 03/09/18 05:25 Lymph # 0.4 10^3/uL (1.5-3.5) L 03/09/18 05:25 [place] # 0.4 10^3/uL (0.0-1.0) 03/09/18 05:25 Eos # 0.1 10^3/uL (0.0-0.7) 03/09/18 05:25 Baso # 0.0 10^3/uL (0.0-0.1) 03/09/18 05:25 Absolute Nucleated RBC 0.00 x10^3/uL 03/09/18 05:25 Nucleated RBC % 0.0 /100WBC 03/09/18 05:25 ESR 32 mm/Hr (0-30) H 03/09/18 05:25 Sodium 132 mmol/L (135-145) L 03/09/18 05:25 Potassium 4.1 mmol/L (3.5-5.0) 03/09/18 05:25 Chloride 102 mmol/L (101-111) 03/09/18 05:25 Carbon Dioxide 26 mmol/L (21-32) 03/09/18 05:25 Anion Gap 4.0 (6-13) L 03/09/18 05:25 BUN 15 mg/dL (6-20) 03/09/18 05:25 Creatinine 0.7 mg/dL (0.4-1.0) 03/09/18 05:25 Estimated GFR (MDRD) 79 (>89) L 03/09/18 05:25 Glucose 96 mg/dL (70-100) 03/09/18 05:25 Calcium 8.2 mg/dL (8.5-10.3) L 03/09/18 05:25 Magnesium 2.0 mg/dL (1.7-2.8) 03/09/18 05:25 Iron 41 ug/dL (28-170) 03/09/18 05:25 TIBC 319 ug/dL (250-450) 03/09/18 05:25 % Saturation 13 % (20-50) L 03/09/18 05:25 Transferrin 228 mg/dL (192-382) 03/09/18 05:25 Total Bilirubin 0.7 mg/dL (0.2-1.0) 03/09/18 05:25 AST 23 IU/L (10-42) 03/09/18 05:25 ALT 18 IU/L (10-60) 03/09/18 05:25 Alkaline Phosphatase 50 IU/L (42-121) 03/09/18 05:25 C-Reactive Protein < 1.0 mg/dL (0-1.0) 03/09/18 05:25 Total Protein 5.8 g/dL (6.7-8.2) L 03/09/18 05:25 Albumin 2.9 g/dL (3.2-5.5) L 03/09/18 05:25 Globulin 2.9 g/dL (2.1-4.2) 03/09/18 05:25 Albumin/Globulin Ratio 1.0 (1.0-2.2) 03/09/18 05:25 TSH 2.62 uIU/mL (0.34-5.60) 03/09/18 05:25 - Procedures Procedures: Procedures CATARAC PHACOEMULS/ASPIR (07/11/13) DRAINAGE OF R PLEURAL CAV WITH DRAIN DEV, PERC APPROACH (10/05/17) ESOPHAGOGASTRODUODENOSCOPY [EGD] W/CLOSED BIOPSY (04/15/14) INSERT LENS AT CATAR EXT (07/11/13) REMOVAL OF INFUSION DEV FROM R PLEURAL CAV, LOAN AND CREDIT MANAGER APPROACH (10/05/17) ABX Reporting Has patient been on IV antibiotics over the past 48 hours?: No
[2018-03-09] MEDS ORDERED: DIPHENOX/ATROPINE 2.5/0.025 MG TABLET PO PRN (16:40)
[2018-03-09] MEDS: PSYLLIUM PACKET PO SCH (18:00)
[2018-03-09] MEDS: CALCIUM CARBONATE CHEW 500 MG TABLET PO SCH ×2 (18:00→20:27)
[2018-03-09] MEDS: ACETAMINOPHEN 500 MG TABLET PO PRN (20:27)
[2018-03-10] MEDS: SODIUM CHLORIDE FLUSH 0.9% 10 ML SYRINGE IVP SCH ×3 (03:04→17:33)
[2018-03-10] MEDS: ACETAMINOPHEN 500 MG TABLET PO PRN ×2 (03:04→09:44)
[2018-03-10 05:47] LABS: BASOPHILS % (AUTO) 0.4 %; EOSINOPHILS # (AUTO) 0.1 10^3/uL (0.0-0.7); EOSINOPHILS % (AUTO) 3.4 %; HGB - HEMOGLOBIN 9.9 g/dL (12.0-16.0); LYMPHOCYTES # (AUTO) 0.5 10^3/uL (1.5-3.5); LYMPHOCYTES % (AUTO) 10.9 %; MEAN CORPUSCULAR HEMOGLOBIN 29.3 pg (27.0-31.0); MEAN CORPUSCULAR HGB CONC 32.4 g/dL (32.0-36.0); MEAN CORPUSCULAR VOLUME 90.4 fL (81.0-99.0); MEAN PLATELET VOLUME 6.6 fL (7.9-10.8); MONOCYTES # (AUTO) 0.3 10^3/uL (0.0-1.0); MONOCYTES % (AUTO) 8.3 %; NEUTROPHILS # (AUTO) 3.2 10^3/uL (1.5-6.6); PLT - PLATELET COUNT 203 10^3/uL (130-450); RED BLOOD COUNT 3.37 10^6/uL (4.20-5.40); RED CELL DISTRIBUTION WIDTH 15.1 % (12.0-15.0); WHITE BLOOD COUNT 4.2 x10^3/uL (4.8-10.8)
[2018-03-10 05:55] LABS: ALBUMIN 2.9 g/dL (3.2-5.5); BILIRUBIN,TOTAL 0.6 mg/dL (0.2-1.0); CALCIUM 8.7 mg/dL (8.5-10.3); CREATININE 0.7 mg/dL (0.4-1.0); CRP - C-REACTIVE PROTEIN 1.6 mg/dL (0-1.0); TOTAL PROTEIN 5.9 g/dL (6.7-8.2)
[2018-03-10 07:42] LABS: BILIRUBIN,URINE NEGATIVE (NEGATIVE); GLUCOSE, URINE (UA) NEGATIVE (NEGATIVE); KETONES,URINE (UA) NEGATIVE (NEGATIVE); LEUKOCYTE ESTERASE, URINE NEGATIVE (NEGATIVE); NITRITE,URINE NEGATIVE (NEGATIVE); OCCULT BLOOD,URINE TRACE-INTA (NEGATIVE); PH,URINE 5.5 PH (5.0-7.5); PROTEIN,URINE NEGATIVE (NEGATIVE); UROBILINOGEN,URINE 0.2 (NORMAL) E.U./dL (NORMAL)
[2018-03-10 07:45] LABS: CLARITY,URINE CLEAR (CLEAR)
[2018-03-10] MEDS: POLYETHYLENE GLYCOL 3350 17 GM PACKET PO SCH (08:55)
[2018-03-10] MEDS: CALCIUM CARBONATE CHEW 500 MG TABLET PO SCH (08:55)
[2018-03-10] MEDS: PSYLLIUM PACKET PO SCH (08:55)
[2018-03-10] MEDS: GABAPENTIN 100 MG CAPSULE PO SCH (08:55)
[2018-03-10] MEDS: ASPIRIN EC 81 MG TABLET PO SCH (08:55)
[2018-03-10] MEDS: IPRATROPIUM/ALBUTEROL 3 ML NEB INH SCH (09:51)
--- NOTE | 2018-03-10 15:57 | PROVIDER PROGRESS NOTE ---
Assessment/Plan - Problem List (4) GERD (gastroesophageal reflux disease) Qualifiers: Esophagitis presence: esophagitis presence not specified Qualified Code(s) : K21.9 - Gastro-esophageal reflux disease without esophagitis (5) Hypertension Qualifiers: Hypertension type: essential hypertension Qualified Code(s): I10 - Essential (primary) hypertension - Current Meds Current Meds: Current Medications Generic Name Dose Route Start Last Admin Trade Name Freq PRN Reason Stop Dose Admin Acetaminophen 500 mg 03/08/18 20:20 03/10/18 09:44 Tylenol PO 500 mg Q4HR PRN Administration Pain or Fever > 38C (100.4F) Albuterol/Ipratropium 3 ml 03/08/18 19:00 03/10/18 09:51 Duoneb INH 3 ml RTBID HOLLY Administration Aspirin 81 mg 03/09/18 09:00 03/10/18 08:55 Ecotrin PO 81 mg DAILY HOLLY Administration Calcium Carbonate/Glycine 500 mg 03/09/18 16:00 03/10/18 08:55 Tums PO 500 mg BID HOLLY Administration Gabapentin 100 mg 03/08/18 21:00 03/10/18 08:55 Neurontin PO 100 mg BID HOLLY Administration Hydromorphone HCl 0.5 mg 03/08/18 19:58 03/09/18 13:45 Dilaudid Inj Syringe IVP 0.5 mg Q2H PRN Administration PAIN Ondansetron HCl 4 mg 03/08/18 19:58 03/09/18 02:25 Zofran Inj IVP 4 mg Q4HR PRN Administration Nausea / Vomiting Polyethylene Glycol 17 gm 03/09/18 09:00 03/10/18 08:55 Miralax PO 17 gm DAILY HOLLY Administration Psyllium Hydrophilic Mucilloid 1 packet 03/09/18 16:40 03/10/18 08:55 Metamucil PO 1 packet DAILY HOLLY Administration Sodium Chloride 10 ml 03/08/18 14:40 03/09/18 13:46 Normal Saline Flush 0.9% IVP 10 ml PRN PRN Administration NEEDED PER PROVIDER ORDERS Sodium Chloride 10 ml 03/08/18 17:00 03/10/18 08:56 Normal Saline Flush 0.9% IVP Not Given 0100,0900,1700 HOLLY - Lab Result Fish Bone Diagrams: 03/10/18 05:20 03/10/18 05:20 - Additional Planning My Orders: My Active Orders 03/09/18 15:04 Calcium Carbonate [Tums] 500 mg PO Q4H PRN 03/09/18 16:00 Calcium Carbonate [Tums] 500 mg PO BID 03/09/18 16:40 Diphenoxylate/Atropine [Lomotil] 1 tab PO QID PRN Psyllium [Metamucil] 1 packet PO DAILY 03/11/18 05:00 CBC - COMP BLD CT W/AUTO DIFF [HEME] DAILYLAB CMP [COMPREHENSIVE METABOLIC PANEL] [CHEM] DAILYLAB CRP - C-REACTIVE PROTEIN [CHEM] DAILYLAB ESR- ERYTHROCYTE SEDIMENT RATE [HEME] DAILYLAB Objective Vital Signs: Vital Signs - 24 hr 03/09/18 03/10/18 03/10/18 20:21 01:00 05:00 Temperature 37.0 C 36.5 C 37.0 C Heart Rate Heart Rate [ 77 77 67 Brachial] Respiratory 20 16 16 Rate Blood Pressure 153/62 H 150/62 H 162/55 H [Right Brachial artery] O2 Saturation 99 100 100 03/10/18 03/10/18 03/10/18 09:40 09:51 12:50 Temperature 36.9 C 36.9 C Heart Rate 86 Heart Rate [ 59 L 77 Brachial] Respiratory 18 16 18 Rate Blood Pressure 146/73 H 154/56 H [Right Brachial artery] O2 Saturation 98 100 03/10/18 15:39 Temperature 36.8 C Heart Rate Heart Rate [ 63 Brachial] Respiratory 18 Rate Blood Pressure 153/55 H [Right Brachial artery] O2 Saturation 100 Oxygen O2 Source [Without Activity] Room air O2 Source Room air I&O (Last 24 Hrs): Intake and Output Totals x24h 03/08/18 03/09/18 03/10/18 23:59 23:59 23:59 Intake Total 380 2718.333 870 Output Total 1900 50 Balance -1520 2718.333 820 General: Alert, No acute distress - Results Results: Laboratory Results WBC 4.2 x10^3/uL (4.8-10.8) L 03/10/18 05:20 RBC 3.37 10^6/uL (4.20-5.40) L 03/10/18 05:20 Hgb 9.9 g/dL (12.0-16.0) L 03/10/18 05:20 Hct 30.5 % (37.0-47.0) L 03/10/18 05:20 MCV 90.4 fL (81.0-99.0) 03/10/18 05:20 MCH 29.3 pg (27.0-31.0) 03/10/18 05:20 MCHC 32.4 g/dL (32.0-36.0) 03/10/18 05:20 RDW 15.1 % (12.0-15.0) H 03/10/18 05:20 Plt Count 203 10^3/uL (130-450) 03/10/18 05:20 MPV 6.6 fL (7.9-10.8) L 03/10/18 05:20 Neut # 3.2 10^3/uL (1.5-6.6) 03/10/18 05:20 Lymph # 0.5 10^3/uL (1.5-3.5) L 03/10/18 05:20 Clarke # 0.3 10^3/uL (0.0-1.0) 03/10/18 05:20 Eos # 0.1 10^3/uL (0.0-0.7) 03/10/18 05:20 Baso # 0.0 10^3/uL (0.0-0.1) 03/10/18 05:20 Absolute Nucleated RBC 0.00 x10^3/uL 03/10/18 05:20 Nucleated RBC % 0.0 /100WBC 03/10/18 05:20 ESR 45 mm/Hr (0-30) H 03/10/18 05:20 Sodium 132 mmol/L (135-145) L 03/10/18 05:20 Potassium 4.3 mmol/L (3.5-5.0) 03/10/18 05:20 Chloride 101 mmol/L (101-111) 03/10/18 05:20 Carbon Dioxide 27 mmol/L (21-32) 03/10/18 05:20 Anion Gap 4.0 (6-13) L 03/10/18 05:20 BUN 19 mg/dL (6-20) 03/10/18 05:20 Creatinine 0.7 mg/dL (0.4-1.0) 03/10/18 05:20 Estimated GFR (MDRD) 79 (>89) L 03/10/18 05:20 Glucose 103 mg/dL (70-100) H 03/10/18 05:20 Calcium 8.7 mg/dL (8.5-10.3) 03/10/18 05:20 Magnesium 2.0 mg/dL (1.7-2.8) 03/09/18 05:25 Iron 41 ug/dL (28-170) 03/09/18 05:25 TIBC 319 ug/dL (250-450) 03/09/18 05:25 % Saturation 13 % (20-50) L 03/09/18 05:25 Transferrin 228 mg/dL (192-382) 03/09/18 05:25 Total Bilirubin 0.6 mg/dL (0.2-1.0) 03/10/18 05:20 AST 21 IU/L (10-42) 03/10/18 05:20 ALT 18 IU/L (10-60) 03/10/18 05:20 Alkaline Phosphatase 47 IU/L (42-121) 03/10/18 05:20 C-Reactive Protein 1.6 mg/dL (0-1.0) H 03/10/18 05:20 Total Protein 5.9 g/dL (6.7-8.2) L 03/10/18 05:20 Albumin 2.9 g/dL (3.2-5.5) L 03/10/18 05:20 Globulin 3.0 g/dL (2.1-4.2) 03/10/18 05:20 Albumin/Globulin Ratio 1.0 (1.0-2.2) 03/10/18 05:20 TSH 2.62 uIU/mL (0.34-5.60) 03/09/18 05:25 Urine Color YELLOW 03/10/18 07:39 Urine Clarity CLEAR (CLEAR) 03/10/18 07:39 Urine pH 5.5 PH (5.0-7.5) 03/10/18 07:39 Ur Specific Central 1.020 (1.002-1.030) 03/10/18 07:39 Urine Protein NEGATIVE mg/dL (NEGATIVE) 03/10/18 07:39 Urine Glucose (UA) NEGATIVE mg/dL (NEGATIVE) 03/10/18 07:39 Urine Ketones NEGATIVE mg/dL (NEGATIVE) 03/10/18 07:39 Urine Occult Blood TRACE-INTA (NEGATIVE) 03/10/18 07:39 Urine Nitrite NEGATIVE (NEGATIVE) 03/10/18 07:39 Urine Bilirubin NEGATIVE (NEGATIVE) 03/10/18 07:39 Urine Urobilinogen 0.2 (NORMAL) E.U./dL (NORMAL) 03/10/18 07:39 Ur Leukocyte Esterase NEGATIVE (NEGATIVE) 03/10/18 07:39 Ur Microscopic Review NOT INDICATED 03/10/18 07:39 Urine Culture Comments NOT INDICATED 03/10/18 07:39 - Procedures Procedures: Procedures CATARAC PHACOEMULS/ASPIR (07/11/13) DRAINAGE OF R PLEURAL CAV WITH DRAIN DEV, PERC APPROACH (10/05/17) ESOPHAGOGASTRODUODENOSCOPY [EGD] W/CLOSED BIOPSY (04/15/14) INSERT LENS AT CATAR EXT (07/11/13) REMOVAL OF INFUSION DEV FROM R PLEURAL CAV, SOFTWARE SECURITY CONSULTANT APPROACH (10/05/17) ABX Reporting Has patient been on IV antibiotics over the past 48 hours?: No
--- NOTE | 2018-03-10 17:32 | DISCHARGE SUMMARY ---
Discharge Summary Admit Date: 03/08/18 Discharge Date: 03/10/18 Discharging Provider: STEPHANIE Moreland Primary Care Provider: Rica Talbert Code Status: Attempt Resuscitation Condition at Discharge: Good Discharge Disposition: 01 Home, Self Care - DIAGNOSES Admission Diagnoses: Hypo-osmolality and hyponatremia (E87.1) Malignant neoplasm of unspecified part of right bronchus or lung (C34.91) Low back pain (M54.5) Altered mental status, unspecified (R41.82) Discharge Diagnoses with Status of Each Condition: Hyponatremia (E87.1) -stable, chronic. Improved since admission. Cancer of right lung (C34.91) chronic, stable. Low back pain (M54.5) chronic, stable. Altered mental state (R41.82) -resolved. Hearing loss (H91.90)-chronic, stable. Anemia (D64.9)-chronic, stable. 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 She had a follow up appointment in our [facility] oncology clinic and saw Dr. Cristina Russo. She was found to be hyponatremic with a sodium of only 119, confused, new low back pain, and weakness. The Hospitalist service was contacted for admission to correction of electrolyte imbalance and for pain control. - HOSPITAL COURSE Hospital Course: The following diagnoses were prevalent during this hospital stay: (1) Cancer of right lung The patient has ongoing active cancer and is status post a right chest tube on her last hospital stay related to CA. The cancer is being treated with PO medications, that is now on hold until further notice per [id number] conversation with Dr. Russo and myself. I suspect that the erlotinib is the likely culprit, although hyponatremia is not a direct side effect. (2) Hyponatremia The patient was attending a clinic follow up to see Dr. Russo and was found to be moderately confused as per [facility] clinic staff and a friend that she relies on for transport help. Labs were checked and she had a low sodium of only 119. She was given normal saline on her first night and was found to be nearly normal at 132. Her mental status had improved and her telemetry was non- remarkable. (3) CATA (generalized anxiety disorder) The patient seems worried both of the times that I have been her provider and admits to being a "worrier". She notes that she does not have much family support even though she devoted much of her life caring for family. She is not prescribed any antidepressants or anti-anxiety medications as per home med list review. (4) GERD (gastroesophageal reflux disease) She complained on ongoing indigestion while in the hospital and TUMS were prescribed as requested. She generally takes an over the counter PPI at home, which was given while she was here. (5) Hypertension-essential The patient has a known history of this and is prescribed atenolol at home. B/ P slightly low during her hospital stay, so her home atenolol was on hold. She was advised to continue as usual at home and check her blood pressure if needed. Disposition: The patient was in stable condition and was very anxious to return home at the time of discharge. She as not dependent on oxygen and was ambulatory. - ALLERGIES Allergies/Adverse Reactions: Allergies Allergy/AdvReac Type Severity Reaction Status Date / Time neomycin [Neomycin] Allergy Unknown unknown Verified 06/12/17 10:33 tetracaine Allergy Unknown unknown Verified 06/12/17 10:33 - MEDICATIONS Home Medications: Ambulatory Orders Medication Instructions Recorded Confirmed Aspirin [Aspirin EC] 81 mg PO DAILY #30 10/09/17 03/08/18 Atenolol [Tenormin] 25 mg PO DAILY #30 10/09/17 03/08/18 Gabapentin 100 mg PO BID #30 10/09/17 03/08/18 Alendronate Sodium 70 mg PO .ONCE WEEKLY PRN 03/08/18 03/08/18 Triamterene/Hydrochlorothiazid 1 tab PO DAILY 03/08/18 03/08/18 [Triamterene-Hctz 37.5-25 mg Tb] - PHYSICAL EXAM AT DISCHARGE General Appearance: positive: No acute distress, Alert Eyes Bilateral: positive: Normal inspection, PERRL ENT: positive: ENT inspection nml, Pharynx nml, No signs of dehydration Neck: positive: Nml inspection, Thyroid nml, No JVD, Stiff neck Respiratory: positive: Chest non-tender, No respiratory distress, Other ( diminished bilaterally) Cardiovascular: positive: Regular rate & rhythm, No gallop, Systolic murmur, Decreased pulse(s) Peripheral Pulses: positive: 1+ Abdomen: positive: Non-tender, No organomegaly, Nml bowel sounds Back: positive: Nml inspection Skin: positive: No rash, Warm, Dry, Pallor Extremities: positive: Non-tender, Full ROM, Nml appearance Neurologic/Psychiatric: positive: Oriented x3, CN's nml (2-12), Motor nml, Weakness, Sensory loss, Depressed mood/affect Reflexes: Bicep (R): 2+, Bicep (L): 2+ - LABS Result Diagrams: 03/10/18 05:20 03/10/18 05:20 - FOLLOW UP Follow Up: Disposition: Home, Self Care Condition: Good Diet: Regular Activity Restrictions: No Restrictions Shower Restrictions: No Driving Restrictions: Yes Weight Bearing: Full Weight Additional Instructions or Follow Up instructions: You were admitted directly from the clinic for hyponatremia after seeing Dr. Russo. You were given IV fluids, which mostly corrected this problem. It is thought that the most recent chemo-therapy pill was causing this problem, and Dr. Russo would like you to stop the erlotinib until you see her next. Please resume all of your other medications. Please see your PCP within one week. - TIME SPENT Time Spent in Discharge (Minutes): 45
[2018-03-10 18:14] VITALS: BP 156/63
== END 2018-03-10 18:25 | disposition home or self-care (01) | DRG 641 ==
LOC: MS2 11:40
PROVIDERS: ADMIT Nurse Practitioner; ATTEND Nurse Practitioner
DX: E87.1 Hypo-osmolality and hyponatremia (principal); C34.91 Malignant neoplasm of unspecified part of right bronchus or lung; J91.0 Malignant pleural effusion; T45.1X5A Adverse effect of antineoplastic and immunosuppressive drugs, initial encounter; M54.5 Low back pain; G89.29 Other chronic pain; H91.90 Unspecified hearing loss, unspecified ear; D64.9 Anemia, unspecified; I10 Essential (primary) hypertension; K21.9 Gastro-esophageal reflux disease without esophagitis; F41.1 Generalized anxiety disorder; Z79.899 Other long term (current) drug therapy; Z79.82 Long term (current) use of aspirin
CPT/HCPCS: 36415; 80053; 81001; 81003; 83540; 83735; 84443; 84466; 85025; 85651; 86140; 87086; 93005; 94640; 99211; 99215

== ENCOUNTER 2018-03-15 08:00 | Outpatient (CLI) | payer MEDICARE, OTHER ==
[2018-03-15 19:18] LABS: BASOPHILS % (AUTO) 0.5 %; EOSINOPHILS # (AUTO) 0.1 10^3/uL (0.0-0.7); EOSINOPHILS % (AUTO) 1.8 %; HGB - HEMOGLOBIN 10.2 g/dL (12.0-16.0); LYMPHOCYTES # (AUTO) 0.4 10^3/uL (1.5-3.5); LYMPHOCYTES % (AUTO) 11.1 %; MEAN CORPUSCULAR HEMOGLOBIN 29.7 pg (27.0-31.0); MEAN PLATELET VOLUME 7.1 fL (7.9-10.8); MONOCYTES # (AUTO) 0.3 10^3/uL (0.0-1.0); MONOCYTES % (AUTO) 8.1 %; NEUTROPHILS # (AUTO) 3.1 10^3/uL (1.5-6.6); NEUTROPHILS % (AUTO) 78.5 %; PLT - PLATELET COUNT 224 10^3/uL (130-450); RED BLOOD COUNT 3.44 10^6/uL (4.20-5.40); WHITE BLOOD COUNT 3.9 x10^3/uL (4.8-10.8)
[2018-03-15 19:28] LABS: ALBUMIN 3.5 g/dL (3.2-5.5); ALBUMIN/GLOBULIN RATIO 0.9 (1.0-2.2); BILIRUBIN,TOTAL 0.6 mg/dL (0.2-1.0); CALCIUM 9.1 mg/dL (8.5-10.3); CREATININE 1.1 mg/dL (0.4-1.0); TOTAL PROTEIN 7.2 g/dL (6.7-8.2)
== END 2018-03-15 08:01 | disposition home or self-care (01) ==
LOC: LAB.WCP 08:00
PROVIDERS: ATTEND Family Medicine
DX: E87.1 Hypo-osmolality and hyponatremia (principal)
CPT/HCPCS: 36415; 80053; 85025

== ENCOUNTER 2018-04-20 10:16 | Outpatient (CLI) | payer MEDICARE, OTHER | END 2018-04-20 10:17 | disposition home or self-care (01) | LOC: LAB 10:16 | PROVIDERS: ATTEND Orthopaedic Surgery | DX: R94.4 Abnormal results of kidney function studies (principal) | CPT/HCPCS: 36415; 82565; 84520 ==

== ENCOUNTER 2018-12-18 08:00 | Outpatient (CLI) | payer MEDICARE, OTHER ==
[2018-12-18 19:02] LABS: BASOPHILS % (AUTO) 0.3 %; EOSINOPHILS # (AUTO) 0.1 10^3/uL (0.0-0.7); EOSINOPHILS % (AUTO) 1.6 %; HGB - HEMOGLOBIN 11.8 g/dL (12.0-16.0); LYMPHOCYTES # (AUTO) 0.6 10^3/uL (1.5-3.5); LYMPHOCYTES % (AUTO) 15.8 %; MEAN CORPUSCULAR HGB CONC 33.2 g/dL (32.0-36.0); MEAN CORPUSCULAR VOLUME 96.3 fL (81.0-99.0); MEAN PLATELET VOLUME 7.9 fL (7.9-10.8); MONOCYTES # (AUTO) 0.3 10^3/uL (0.0-1.0); NEUTROPHILS # (AUTO) 2.8 10^3/uL (1.5-6.6); NEUTROPHILS % (AUTO) 75.3 %; PLT - PLATELET COUNT 186 10^3/uL (130-450); RED CELL DISTRIBUTION WIDTH 14.4 % (12.0-15.0); WHITE BLOOD COUNT 3.7 x10^3/uL (4.8-10.8)
[2018-12-18 19:26] LABS: ALBUMIN 3.8 g/dL (3.2-5.5); BILIRUBIN,TOTAL 0.3 mg/dL (0.2-1.0); CALCIUM 9.3 mg/dL (8.5-10.3); MAGNESIUM 2.2 mg/dL (1.7-2.8); PHOSPHORUS 2.7 mg/dL (2.5-4.6); TOTAL PROTEIN 7.5 g/dL (6.7-8.2)
== END 2018-12-18 23:59 | disposition home or self-care (01) ==
LOC: LAB.WCP 08:00
PROVIDERS: ATTEND Physician Assistant Medical
DX: R55 Syncope and collapse (principal); R00.0 Tachycardia, unspecified
CPT/HCPCS: 36415; 80053; 83735; 84100; 84443; 85025

== ENCOUNTER 2018-12-25 11:36 | Outpatient (CLI) | payer MEDICARE, OTHER ==
[2018-12-25] MEDS ORDERED: IOVERSOL 320 50 ML VIAL ONE (11:54)
[2018-12-25] MEDS ORDERED: IOVERSOL 320 100 ML VIAL IVP ONE ×3 (11:54→16:20)
[2018-12-25] MEDS ORDERED: IOVERSOL 320 50 ML VIAL PO ONE (16:20)
--- NOTE | 2018-12-26 10:58 | CT Report ---
Reason: LUNG CANCER Procedure Date: 12/25/2018 Accession Number: [id number] / [id number] Procedure: CT - CHEST W CPT Code: FULL RESULT: EXAM: CT CHEST, ABDOMEN AND PELVIS EXAM DATE: 12/25/2018 01:41 PM. CLINICAL HISTORY: Lung cancer. COMPARISONS: CT chest 09/06/2018, chest 06/02/2018, abdomen and pelvis 03/03/2018. TECHNIQUE: Routine helical CT imaging was performed through the chest, abdomen, and pelvis. IV contrast: Optiray 320 90 mL. Enteric contrast: Yes. Reconstructions: Coronal and sagittal. In accordance with CT protocol optimization, one or more of the following dose reduction techniques were utilized for this exam: automated exposure control, adjustment of mA and/or KV based on patient size, or use of iterative reconstructive technique. FINDINGS: Lungs/Pleura: The previously seen loculated small right pleural effusion appears similar to before. Nodular consolidation best seen on image 38 of series 3 appears morphologically similar. The spiculated nodule of consolidation along the fissure on image 39 now measures 1.1 x 1.3 cm (previously 1.4 x 1.0 cm), likely posttreatment evolution. The right upper lobe sub-solid nodule persists on image 17, 1.2 x 0.9 cm, stable. A 3 mm nodule in the left lower lobe peripherally on image 29 of series 3 is retrospectively also identified, stable. Mediastinum: Coronary calcifications. No adenopathy or masses. The heart and great vessels are normal. Liver: Normal. Gallbladder/Bile Ducts: Unremarkable, previous radiodense cholelithiasis is not redemonstrated. Spleen: Normal. Pancreas: Known cystic lesion in the head of the pancreas, up to 1.7 cm, is unchanged in size when taking into account the previous coronal series. Adrenal Glands: Normal. Kidneys: Normal. No masses or hydronephrosis. Peritoneal Cavity/Bowel: Diverticulosis. No free fluid, free air or adenopathy. No masses or acute inflammatory process. Pelvic Organs: Normal. The bladder and visualized pelvic organs are within normal limits. Vasculature: Atherosclerotic disease without aneurysm. Bones: No aggressive osseous lesions are detected. Interval three-level kyphoplasty, L2, L3, L5. Other: Right thyroid gland contains a 0.8 cm nodule and the left thyroid gland contains a 0.5 cm nodule, retrospectively present on the previous study but obscured by streak artifact. IMPRESSION: Interval evolution of presumed post-treatment changes with no suspicious interval increase in size or development of new suspicious nodules. Nodules of the thyroid gland; characterization by thyroid ultrasound on a routine basis if clinically indicated. Stable cystic lesion in the pancreatic head, up to 1.7 cm. Previous recommendation of MRI/MRCP with contrast enhancement based on the February 2018 study is unchanged (mid 2019). RADIA
--- NOTE | 2018-12-27 22:00 | CT Report ---
Reason: LUNG CANCER Procedure Date: 12/25/2018 Accession Number: [id number] / [id number] Procedure: CT - Abdomen/Pelvis W CPT Code: FULL RESULT: EXAM: CT ABDOMEN AND PELVIS EXAM DATE: 12/25/2018 01:41 PM. CLINICAL HISTORY: Lung cancer COMPARISONS: CHEST W/ 09/06/2018 12:16 PM CHEST W12/25/2018 1:39 PM ABDOMEN/PELVIS W03/03/2018 5:09 PM CHEST W06/02/2018 3:32 PM. TECHNIQUE: Routine helical CT imaging was performed through the abdomen and pelvis. IV contrast: OPTI 320 90mL. Enteric contrast: No. Reconstructions: Coronal and sagittal. In accordance with CT protocol optimization, one or more of the following dose reduction techniques were utilized for this exam: automated exposure control, adjustment of mA and/or KV based on patient size, or use of iterative reconstructive technique. FINDINGS: Lung Bases: Again seen is a 1.5 x 0.6 cm of plate like density in the right lung base adjacent to the diaphragm, unchanged from 504 18 and likely represents some scarring. Also, linear scarring in the right lung base with trace right pleural effusion, stable. Liver: Normal. No masses. Gallbladder/Bile Ducts: Unremarkable. Spleen: Normal. Pancreas: Again seen is a 1.3 cm hypoattenuated cystic lesion in the pancreatic head/body, stable. Remainder the pancreas unremarkable. No ductal dilatation. Adrenal Glands: Normal. Kidneys: Normal. No masses or hydronephrosis. Peritoneal Cavity/Bowel: Normal. No free fluid, free air or adenopathy. No masses or acute inflammatory process. The appendix is well visualized and normal. Pelvic Organs: Normal. The bladder and visualized pelvic organs are within normal limits. Vasculature: Moderate aortoiliac atherosclerosis. No aneurysmal dilatation. No change. Bones: Vertebral plasties in L2, L3 and L5, new since 1417. Other: None. IMPRESSION: 1. Stable scarring and small effusion right lung base. 2. No evidence of metastatic disease in the abdomen or pelvis. 3. Interval vertebroplasty L2, L3 and L5 with compression deformity of L3. No lytic or blastic bony lesions are seen. RADIA
== END 2018-12-25 11:37 | disposition home or self-care (01) ==
LOC: DI 11:36
PROVIDERS: ATTEND Internal Medicine
DX: C34.2 Malignant neoplasm of middle lobe, bronchus or lung (principal); C34.31 Malignant neoplasm of lower lobe, right bronchus or lung; M43.8X6 Other specified deforming dorsopathies, lumbar region
CPT/HCPCS: 71260; 74177; Q9967

== ENCOUNTER 2019-02-12 15:43 | Outpatient (CLI) | payer MEDICARE, OTHER ==
--- NOTE | 2019-02-12 16:25 | CT Report ---
Reason: HEADACHE Procedure Date: 02/12/2019 Accession Number: [id number] / [id number] Procedure: CT - HEAD WO CPT Code: FULL RESULT: EXAM: CT HEAD EXAM DATE: 02/12/2019 03:58 PM. CLINICAL HISTORY: HEADACHE. COMPARISON: BRAIN W/WO 10/12/2017 2:30 PM. TECHNIQUE: Multiaxial CT images were obtained from the foramen magnum to the vertex. Reformats: Sagittal and coronal. IV contrast: None. In accordance with CT protocol optimization, one or more of the following dose reduction techniques were utilized for this exam: automated exposure control, adjustment of mA and/or KV based on patient size, or use of iterative reconstructive technique. 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 No intraparenchymal hemorrhage. Carey-ventricular hypoattenuation is consistent with age-related micro-angiopathic changes. No evidence of mass, midline shift, or CT findings of infarction. Garcia-white differentiation is distinct. Extraaxial Spaces: Normal for age. No subdural or epidural collections identified. Ventricles: Normal in size and position. Sinuses and Orbits: Imaged paranasal sinuses, orbits, and mastoids show no significant abnormality. Bones: No evidence of fracture or calvarial defect. Other: None. IMPRESSION: No focal loss of garcia-white matter transition to suggest acute infarcts. 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 No midline shift or mass-effect. No acute intra-cranial pathology. RADIA
== END 2019-02-12 15:44 | disposition home or self-care (01) ==
LOC: DI 15:43
PROVIDERS: ATTEND Physician Assistant Medical
DX: R51 Headache (principal); Z86.73 Personal history of transient ischemic attack (TIA), and cerebral infarction without residual deficits
CPT/HCPCS: 70450

== ENCOUNTER 2019-04-09 15:11 | Outpatient (CLI) | payer MEDICARE, OTHER ==
--- NOTE | 2019-04-09 16:32 | MRI Report ---
Reason: WEDGE COMPRESSION FRACTURE OF 5TH LUMBAR VERTEBRA Procedure Date: 04/09/2019 Accession Number: [id number] / [id number] Procedure: MRI - Lumbar Spine W/O CPT Code: FULL RESULT: EXAM: MRI LUMBAR SPINE WITHOUT CONTRAST EXAM DATE: 04/09/2019 03:54 PM. CLINICAL HISTORY: Wedge compression fracture of 5th lumbar vertebra. Low back pain. COMPARISON: LUMBAR SPINE W/O 03/06/2016 2:30 PM. TECHNIQUE: Multiplanar, multisequence T1-weighted and fluid-sensitive sequences of the lumbar spine from T12 to S1 without contrast. Other: None. FINDINGS: Spinal Canal: The conus terminates at L1. The conus medullaris and cauda equina are unremarkable. Alignment: No scoliosis or spondylolisthesis. Bone Marrow: Five [id number] lumbar vertebral bodies are assumed. 1. Kyphoplasty cement L2 vertebral body with 10% loss of vertebral body height and concave deformity of the superior and inferior vertebral body endplates. 2. Kyphoplasty cement L3 vertebral body with 40% loss of vertebral body height and concave deformity of the superior and inferior vertebral body endplates. Interval loss in height L3 vertebral body as compared to the MRI lumbar spine 03/06/2016. Mild retropulsed posterior superior vertebral body cortex. 3. Mild chronic compression L4 vertebral body with a 20% loss of vertebral body height and concave deformity of the superior and inferior vertebral body endplates. Negative for interval change as compared to the MRI lumbar spine 03/06/2016. 4. Kyphoplasty cement L5 vertebral body with concave deformity of the superior and inferior vertebral body endplates and 20% loss in vertebral body height. 5. Negative for subacute vertebral body fracture. Disk Levels/Facets: T12-L1: Mild disk degeneration. L1-L2: Mild disk degeneration. Negative for spinal canal stenosis or foraminal stenosis. L2-L3: Retropulsed 3 mm posterior superior L3 vertebral body cortex without spinal canal stenosis. The intervertebral foramina are negative for stenosis. Severe disk degeneration. L3-L4: Severe disk degeneration. Negative for spinal canal stenosis. Mild facet joint arthrosis. Diffuse disk bulge osteophyte complex. Mild bilateral foraminal stenosis from facet hypertrophy and diffuse disk bulge. L4-L5: Mild bilateral facet joint arthrosis. The left intervertebral foramen is negative for stenosis. Mild right foraminal stenosis from disk degeneration and facet hypertrophy. Severe disk degeneration. L5-S1: Severe right and moderate left facet joint arthrosis. Negative for spinal canal stenosis. Mild bilateral foraminal stenosis from disk degeneration and facet hypertrophy. Severe disk degeneration. Musculature: Normal. No edema or fatty atrophy. Other: The partially visualized retroperitoneum is unremarkable. IMPRESSION: 1. Negative for disk herniation or central spinal canal stenosis. 2. Chronic compression with kyphoplasty cement L2 vertebral body with a 10% loss of vertebral body height, L3 vertebral body with 40% loss of vertebral body height and L5 vertebral body with 20% loss of vertebral body height. 3. Negative for subacute vertebral body fracture. 4. Mild bilateral L3-L4, mild right L4-L5, and mild bilateral L5-S1 foraminal stenosis. Comment: The following findings are so common in adults without low back pain that while we report their presence, they must be interpreted with caution and in the context of the clinical situation. (Reference Tiank et al, Spine 2001) Prevalence of findings in patients without low back pain: Disk degeneration (any evidence): 92% Disk desiccation/T2 signal loss: 83% Disk height loss: 56% Disk bulge: 64% Disk protrusion: 32% Annular tear/high intensity zone: 38% RADIA
== END 2019-04-09 15:12 | disposition home or self-care (01) ==
LOC: DI 15:11
PROVIDERS: ATTEND Orthopaedic Surgery
DX: M48.56XD Collapsed vertebra, not elsewhere classified, lumbar region, subsequent encounter for fracture with routine healing (principal); M51.36 Other intervertebral disc degeneration, lumbar region; M48.061 Spinal stenosis, lumbar region without neurogenic claudication; M47.816 Spondylosis without myelopathy or radiculopathy, lumbar region; M48.07 Spinal stenosis, lumbosacral region
CPT/HCPCS: 72148

== ENCOUNTER 2019-08-23 08:28 | Outpatient (CLI) | payer MEDICARE, OTHER ==
[2019-08-23 12:27] LABS: CHOL/HDL RATIO 3.1 (<4.4); CHOLESTEROL 230 mg/dL; HDL CHOLESTEROL 74 mg/dL; LDL CHOLESTEROL,CALCULATED 140 mg/dL; LDL/HDL RATIO 1.9 (<4.4); VLDL CHOLESTEROL 16 mg/dL
== END 2019-08-23 23:59 | disposition home or self-care (01) ==
LOC: LAB.WCP 08:28
PROVIDERS: ATTEND Physician Assistant Medical
DX: E78.6 Lipoprotein deficiency (principal)
CPT/HCPCS: 36415; 80061; 83721

== ENCOUNTER 2019-12-27 15:08 | Outpatient (CLI) | payer MEDICARE, OTHER ==
[2019-12-27 18:55] LABS: CALCIUM 9.3 mg/dL (8.5-10.3); CREATININE 1.1 mg/dL (0.4-1.0)
== END 2019-12-27 23:59 | disposition home or self-care (01) ==
LOC: LAB.WCP 15:08
PROVIDERS: ATTEND Physician Assistant Medical
DX: I10 Essential (primary) hypertension (principal)
CPT/HCPCS: 36415; 80048

== ENCOUNTER 2021-01-29 15:01 | Outpatient (CLI) | payer MEDICARE, OTHER | END 2021-01-29 15:02 | disposition critical access hospital (66) | LOC: EMS 15:01 | PROVIDERS: ATTEND Emergency Medicine | DX: R10.13 Epigastric pain (principal); R11.2 Nausea with vomiting, unspecified; H53.9 Unspecified visual disturbance | CPT/HCPCS: A0425; A0429 ==

== ENCOUNTER 2021-01-29 15:22 | Emergency (ER) | payer MEDICARE, OTHER ==
[2021-01-29] MEDS ORDERED: ONDANSETRON 4 MG/2 ML VIAL IVP STA (15:24)
[2021-01-29] MEDS ORDERED: SODIUM CHLORIDE 0.9% 1,000 ML IV STA (15:24)
[2021-01-29] MEDS ORDERED: IOVERSOL 320 100 ML VIAL IVP ONE ×2 (15:41→17:46)
--- NOTE | 2021-01-29 15:44 | ED Physician Documentation ---
History of Present Illness - Stated complaint Stated Complaint: VOMITING - Chief complaint Chief Complaint: Abd Pain - History obtained from History obtained from: Patient - History of Present Illness Timing: Today Pain level max: 0 Pain level now: 0 - Additonal information Additional information: Patient is an 89-year-old female who was visiting her doctor today when she had 1 episode of vomiting and diarrhea. She does not have any abdominal pain. No headache. Patient is a poor historian at baseline and has memory difficulties. Since she vomited she has been asking for food. No fevers that we are aware of. The primary care doctor also states that the patient said she saw flashes of red and yellow. Patient has no complaints currently and is asking for food and asking to go home. Review of Systems Constitutional: denies: Fever, Chills Ears: denies: Ear pain Nose: denies: Rhinorrhea / runny nose, Congestion Cardiac: denies: Chest pain / pressure, Palpitations Respiratory: denies: Cough, Wheezing GI: reports: Vomiting, Diarrhea : denies: Dysuria Skin: denies: Rash Musculoskeletal: denies: Neck pain, Back pain Neurologic: denies: Headache PD PAST MEDICAL HISTORY - Past Medical History Cardiovascular: Hypertension Respiratory: Shortness of breath Endocrine/Autoimmune: None GI: GERD : Incontinence, Nocturia, Frequency HEENT: Chronic vision loss, Chronic hearing loss Psych: Anxiety Musculoskeletal: Osteoarthritis, Chronic back pain Derm: None - Past Surgical History Past Surgical History: Yes HEENT: Cataracts Derm: Other - Present Medications Home Medications: Ambulatory Orders Medication Instructions Recorded Confirmed Tramadol HCl 1 tab PO Q4HR #30 tablet 08/09/18 11/25/20 Erlotinib HCl [Tarceva] 100 mg PO DAILY #30 tablet 02/05/19 11/25/20 Hydrocortisone 1% Oint 1 tube TOP BID 02/22/19 11/25/20 [Hydrocortisone] - Allergies Allergies/Adverse Reactions: Allergies Allergy/AdvReac Type Severity Reaction Status Date / Time neomycin [Neomycin] Allergy Unknown unknown Verified 01/29/21 15:31 tetracaine Allergy Unknown unknown Verified 01/29/21 15:31 - Social History Does the pt smoke?: No Smoking Status: Never smoker Does the pt drink ETOH?: No Does the pt have substance abuse?: No - Immunizations Immunizations are current?: No - POLST Patient has POLST: No POLST Status: Full Code PD ED PE NORMAL - Vitals Vital signs reviewed: Yes - General General: No acute distress, Other (alert, oriented to person and place, not to time) - HEENT HEENT: Moist mucous membranes - Neck Neck: Supple, no meningeal sign - Cardiac Cardiac: RRR, Strong equal pulses - Respiratory Respiratory: No respiratory distress, Clear bilaterally - Abdomen Abdomen: Soft, Non tender, Non distended - Back Back: No CVA TTP - Derm Derm: Warm and dry - Extremities Extremities: No edema - Neuro Neuro: Other (alert, oriented to person and place, not to time) - Psych Psych: Normal mood, Normal affect Results - Vitals Vitals: Vital Signs - 24 hr 01/29/21 01/29/21 01/29/21 15:28 16:53 18:50 Temperature 36.6 C 36.1 C L Heart Rate 63 63 62 Respiratory 15 14 18 Rate Blood Pressure 139/58 H 127/56 L 138/81 H O2 Saturation 99 98 98 01/29/21 19:27 Temperature 35.5 C L Heart Rate 66 Respiratory 18 Rate Blood Pressure 164/77 H O2 Saturation 100 Oxygen O2 Source [Without Activity] Room air O2 Source Room air - Labs Labs: Laboratory Tests 01/29/21 01/29/21 01/29/21 16:35 16:35 18:30 WBC 4.1 L RBC 3.37 L Hgb 10.7 L Hct 33.4 L MCV 99.1 H MCH 31.8 H MCHC 32.0 RDW 13.7 Plt Count 152 MPV 9.3 Neut # (Auto) 3.3 Lymph # (Auto) 0.5 L Winn # (Auto) 0.3 Eos # (Auto) 0.1 Baso # (Auto) 0.0 Absolute Nucleated RBC 0.00 Nucleated RBC % 0.0 Sodium 138 Potassium 3.9 Chloride 97 L Carbon Dioxide 32 Anion Gap 9.0 BUN 30 H Creatinine 1.2 H Estimated GFR (MDRD) 42 L Glucose 133 H Calcium 9.0 Total Bilirubin 0.6 AST 30 ALT 20 Alkaline Phosphatase 39 L Total Protein 6.6 L Albumin 3.6 Globulin 3.0 Albumin/Globulin Ratio 1.2 Lipase 64 H Urine Color YELLOW Urine Clarity CLEAR Urine pH 6.0 Ur Specific [place] <=1.005 Urine Protein NEGATIVE Urine Glucose (UA) NEGATIVE Urine Ketones NEGATIVE Urine Occult Blood NEGATIVE Urine Nitrite NEGATIVE Urine Bilirubin NEGATIVE Urine Urobilinogen 0.2 (NORMAL) Ur Leukocyte Esterase NEGATIVE Ur Microscopic Review NOT INDICATED Urine Culture Comments NOT INDICATED - Rads (name of study) CT abd./pelvis Radiology: Prelim report reviewed, EMP read contemporaneously, See rad report PD MEDICAL DECISION MAKING - ED course Complexity details: reviewed results, re-evaluated patient, considered differential, d/w patient ED course: 89-year-old female with vomiting x1 today. Tolerating p.o. without any difficulty here. No acute findings on CT scan or laboratory testing. Patient is well-appearing, nontoxic. Afebrile. Patient is requesting food. She is not vomiting. We will have her follow-up with her doctor for further care. This document was made in part using voice recognition software. While efforts are made to proofread this document, sound alike and grammatical errors may occur. IMPRESSION: 1. Possible gastric antral thickening. Differential diagnoses include peptic ulcer disease versus artifact from lack of distention. 2. No acute inflammatory changes in abdomen or pelvis. 3. Chronic 19 the right lung base appears stable compared to 11/18/2020. 4. Mild hepatic steatosis. 5. A small fat-containing umbilical hernia. 6. 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 Departure - Departure Disposition: 01 Home, Self Care Clinical Impression: Vomiting Qualifiers: Vomiting type: unspecified Vomiting Intractability: non-intractable Nausea presence: unspecified Qualified Code(s): R11.10 - Vomiting, unspecified Condition: Good Instructions: ED Nausea Vomiting Follow-Up: Rica Talbert PA-C [Primary Care Provider] - Within 1 week Comments: Your labs and CT scan do not show any acute abnormalities today. Please follow- up with your doctor for further care. Return if you worsen. IMPRESSION: 1. Possible gastric antral thickening. Differential diagnoses include peptic ulcer disease versus artifact from lack of distention. 2. No acute inflammatory changes in abdomen or pelvis. 3. Chronic 19 the right lung base appears stable compared to 11/18/2020. 4. Mild hepatic steatosis. 5. A small fat-containing umbilical hernia. 6. 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 Discharge Date/Time: 01/29/21 19:46
[2021-01-29 16:43] LABS: BASOPHILS % (AUTO) 0.2 %; EOSINOPHILS # (AUTO) 0.1 10^3/uL (0.0-0.7); EOSINOPHILS % (AUTO) 2.2 %; HCT - HEMATOCRIT 33.4 % (37.0-47.0); HGB - HEMOGLOBIN 10.7 g/dL (12.0-16.0); LYMPHOCYTES # (AUTO) 0.5 10^3/uL (1.5-3.5); LYMPHOCYTES % (AUTO) 11.1 %; MEAN CORPUSCULAR HEMOGLOBIN 31.8 pg (27.0-31.0); MEAN CORPUSCULAR VOLUME 99.1 fL (81.0-99.0); MEAN PLATELET VOLUME 9.3 fL (7.9-10.8); MONOCYTES # (AUTO) 0.3 10^3/uL (0.0-1.0); NEUTROPHILS # (AUTO) 3.3 10^3/uL (1.5-6.6); NEUTROPHILS % (AUTO) 79.3 %; PLT - PLATELET COUNT 152 10^3/uL (130-450); RED BLOOD COUNT 3.37 10^6/uL (4.20-5.40); RED CELL DISTRIBUTION WIDTH 13.7 % (12.0-15.0); WHITE BLOOD COUNT 4.1 x10^3/uL (4.8-10.8)
[2021-01-29 16:55] LABS: ALBUMIN 3.6 g/dL (3.2-5.5); ALBUMIN/GLOBULIN RATIO 1.2 (1.0-2.2); BILIRUBIN,TOTAL 0.6 mg/dL (0.2-1.0); CREATININE 1.2 mg/dL (0.4-1.0); POTASSIUM 3.9 mmol/L (3.5-5.0); TOTAL PROTEIN 6.6 g/dL (6.7-8.2)
--- NOTE | 2021-01-29 18:30 | CT Report ---
PROCEDURE: Abdomen/Pelvis W INDICATIONS: Abdominal pain, acute, nonlocalized CONTRAST: IV CONTRAST: Optiray 320 ml: 80 PO CONTRAST: *NO PO CONTRAST TECHNIQUE: After the administration of intravenous contrast, 5 mm thick sections acquired from the diaphragms to the symphysis. 5 mm thick coronal and sagittal reformats were acquired. For radiation dose reducti on, the following was used: automated exposure control, adjustment of mA and/or kV according to jason ent size. COMPARISON: CT abdomen and pelvis with contrast 05/19/2020 and 12/25/2018. CT chest with contrast, and 05/19/2020. FINDINGS: Image quality: Excellent. ABDOMEN: Lung bases: There is a gross thickening and small loculated right pleural effusion the right base. Th ere is a irregular linear density in the right lower lobe, unchanged and compatible with scarring and fibrosis. Heart size is normal. Solid organs: Mild hepatic steatosis. Liver and spleen are normal in size and enhancement. Gallblad sergio is normal. Biliary system is non dilated. Pancreas enhances normally. No adrenal nodules. Kid neys demonstrate normal size and enhancement, without hydronephrosis. Peritoneum and bowel: Gastric antrum may be thickened although stomach is not adequately distended. Bowel loops demonstrate normal wall thickness and caliber. No free fluid or air. Nodes and vessels: No retroperitoneal or mesenteric adenopathy by size criteria. Aorta and inferior vena cava are normal in size. Miscellaneous: There is a small fat-containing umbilical hernia. PELVIS: Genitourinary: Bladder wall thickness is normal. Uterus is appropriately atrophic. Miscellaneous: No inguinal hernias or adenopathy. Bones: No suspicious bony lesions. There are chronic vertebral body compression fractures, severe at L3, and mild at L5. Vertebroplasty at L2, L3 and L5 IMPRESSION: 1. Possible gastric antral thickening. Differential diagnoses include peptic ulcer disease versus art ifact from lack of distention. 2. No acute inflammatory changes in abdomen or pelvis. 3. Chronic 19 the right lung base appears stable compared to 11/18/2020. 4. Mild hepatic steatosis. 5. A small fat-containing umbilical hernia. 6. 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 Reviewed by: Glenn Escoto MD on 01/29/2021 5:29 PM [facility] Approved by: Glenn Escoto MD on 01/29/2021 5:29 PM AKDT Station ID: [id number]
[2021-01-29 18:46] LABS: BILIRUBIN,URINE NEGATIVE (NEGATIVE); CLARITY,URINE CLEAR (CLEAR); GLUCOSE, URINE (UA) NEGATIVE (NEGATIVE); KETONES,URINE (UA) NEGATIVE (NEGATIVE); LEUKOCYTE ESTERASE, URINE NEGATIVE (NEGATIVE); NITRITE,URINE NEGATIVE (NEGATIVE); OCCULT BLOOD,URINE NEGATIVE (NEGATIVE); PROTEIN,URINE NEGATIVE (NEGATIVE); UROBILINOGEN,URINE 0.2 (NORMAL) E.U./dL (NORMAL)
[2021-01-29 19:29] VITALS: BP 164/77
== END 2021-01-29 19:46 | disposition home or self-care (01) ==
LOC: EDUNIT# → ED 15:22 → SUPCPDRO 15:22 → ED 19:46
DX: R11.10 Vomiting, unspecified (principal); I10 Essential (primary) hypertension
CPT/HCPCS: 36415; 74177; 80053; 81003; 83690; 85025; 96361; 96374; 99283; 99284; Q9967; 81001; 87086